=== PATIENT | male | born 1955 | race Caucasian/White ===

== ENCOUNTER 2018-06-17 13:34 | Emergency (ER) | payer BC ==
[2018-06-17] MEDS ORDERED: HYDROcodone/APAP 5-325MG 1 EACH TAB PO STA (14:41)
--- NOTE | 2018-06-17 14:45 | ED ---
Fall HPI - General Chief Complaint: Fall Stated Complaint: Fell,Arm injury Time Seen by Provider: 06/17/18 14:30 Source: patient Mode of arrival: wheelchair - History of Present Illness Initial Comments: This is a 62-year-old male with a benign history who is right handed who states she slipped on the ice this prior to arrival here. He complains of right elbow and shoulder pain. He does not complaining of any head neck or back pain no other extremity injury he points to the right elbow shoulder area area pain. MD Complaint: fall - Related Data Home Medications Medication Instructions Recorded Confirmed Naproxen Sodium [Aleve] 220 mg PO DAILY PRN 06/17/18 06/17/18 Allergies Allergy/AdvReac Type Severity Reaction Status Date / Time No Known Allergies Allergy Verified 06/17/18 13:48 Review of Systems ROS Statement: Those systems with pertinent positive or pertinent negative responses have been documented in the HPI. ROS Other: All systems not noted in ROS Statement are negative. Past Medical History Past Medical History: No Reported History History of Any Multi-Drug Resistant Organisms: None Reported Past Surgical History: Hernia Repair Past Psychological History: No Psychological Hx Reported Smoking Status: Current every day smoker Past Alcohol Use History: None Reported Past Drug Use History: None Reported General Exam - General Exam Comments Initial Comments: This is a well-developed well-nourished awake alert oriented times 3 male Limitations: no limitations General appearance: alert, anxious, in distress Head exam: Present: atraumatic, normocephalic, normal inspection Eye exam: Present: normal appearance, PERRL, EOMI. Absent: scleral icterus, conjunctival injection, periorbital swelling ENT exam: Present: normal exam, mucous membranes moist Neck exam: Present: normal inspection. Absent: tenderness, meningismus, lymphadenopathy Respiratory exam: Present: normal lung sounds bilaterally. Absent: respiratory distress, wheezes, rales, rhonchi, stridor Cardiovascular Exam: Present: regular rate Extremities exam: Present: tenderness, normal capillary refill, other (Marked tenderness palpation of the right elbow and some tenderness over the proximal right humerus no evidence of any subluxation or deformity at this time. No tennis palpation of the distal right forearm wrist and fingers.). Absent: full ROM Back exam: Present: normal inspection Neurological exam: Present: alert, oriented X3, CN II-XII intact Psychiatric exam: Present: normal affect, anxious Skin exam: Present: warm, dry, intact, normal color. Absent: rash Course Vital Signs 06/17/18 06/17/18 06/17/18 13:35 16:03 16:20 Temperature 97.5 F L Pulse Rate 84 92 96 Respiratory 18 16 14 Rate Blood Pressure 107/68 135/99 143/76 O2 Sat by Pulse 96 95 95 Oximetry 06/17/18 06/17/18 06/17/18 16:22 16:25 16:27 Temperature Pulse Rate 105 H 101 H 107 H Respiratory 18 18 16 Rate Blood Pressure 146/77 146/77 92/67 O2 Sat by Pulse 99 94 L Oximetry 06/17/18 06/17/18 06/17/18 16:29 16:30 16:34 Temperature Pulse Rate 96 97 Respiratory 18 18 Rate Blood Pressure 143/91 92/67 95/73 O2 Sat by Pulse 92 L 97 Oximetry 06/17/18 16:47 Temperature 97.8 F Pulse Rate 93 Respiratory 18 Rate Blood Pressure 115/72 O2 Sat by Pulse 97 Oximetry - Reevaluation(s) Reevaluation #1: 06/17/18 16:53 I did discuss case in the branch who did consult with Dr. Mitchell. The patient needs orthopedic trauma. I did discuss case with Dr. Nix at [facility] is agreed to set the patient transfer. Procedures - Orthopedic Splinting/Casting Injury #1 Side: right Upper Extremity Injury Location: elbow Upper Extremity Immobilizer: sling/shoulder immobilizer, posterior splint, ulnar gutter (Long arm 5 x 30) - Procedural Sedation Procedural Sedation Start Time: 16:25 Procedural Sedation Stop Time: 16:54 Indications: fracture/dislocation reduction ASA Class: II Mallampati Airway Score: 3 Preparation: tie presser applied, pulse oximeter, capnometry used, supplemental O2 applied, reversal agents at bedside, suction/airway equipment at bedside, IV secured Midazolam: IV Midazolam Dose: 2 IV Propofol Dose (mgs): 50 Complications: none Patient Tolerated Procedure: well (Patient did require some re- positioning) Medical Decision Making - Medical Decision Making Post reduction this pleasant application x-ray shows minimal improvement patient neurovascular exam however is good any states he feels much improved at this time. Patient will be transferred to [facility] by EMS. I did fill out transfer papers. - Lab Data Result diagrams: 06/17/18 15:47 06/17/18 15:47 Lab Results 06/17/18 06/17/18 Range/Units 15:47 15:47 WBC 19.2 H (3.8-10.6) k/uL RBC 4.93 (4.30-5.90) m/uL Hgb 15.4 (13.0-17.5) gm/dL Hct 45.6 (39.0-53.0) % MCV 92.6 (80.0-100.0) fL MCH 31.3 (25.0-35.0) pg MCHC 33.8 (31.0-37.0) g/dL RDW 12.8 (11.5-15.5) % Plt Count 225 (150-450) k/uL Neutrophils % 88 % Lymphocytes % 7 % Monocytes % 4 % Eosinophils % 1 % Basophils % 0 % Neutrophils # 16.9 H (1.3-7.7) k/uL Lymphocytes # 1.3 (1.0-4.8) k/uL Monocytes # 0.7 (0-1.0) k/uL Eosinophils # 0.2 (0-0.7) k/uL Basophils # 0.0 (0-0.2) k/uL Sodium 137 (137-145) mmol/L Potassium 4.9 (3.5-5.1) mmol/L Chloride 106 (98-107) mmol/L Carbon Dioxide 23 (22-30) mmol/L Anion Gap 8 mmol/L BUN 14 (9-20) mg/dL Creatinine 0.96 (0.66-1.25) mg/dL Est GFR (CKD-EPI)AfAm >90 (>60 ml/min/1.73 sqM) Est GFR (CKD-EPI)NonAf 86 (>60 ml/min/1.73 sqM) Glucose 354 H (74-99) mg/dL Calcium 9.1 (8.4-10.2) mg/dL Magnesium 1.8 (1.6-2.3) mg/dL Total Bilirubin 0.5 (0.2-1.3) mg/dL AST 27 (17-59) U/L ALT 35 (21-72) U/L Alkaline Phosphatase 102 (38-126) U/L Total Protein 6.6 (6.3-8.2) g/dL Albumin 3.7 (3.5-5.0) g/dL - Radiology Data Radiology results: report reviewed (I did review the imaging and report the patient does demonstrate a comminuted fracture proximal ulna and radius.), image reviewed Disposition Clinical Impression: Fall, Right forearm fracture Disposition: OTHER INSTITUTION NOT DEFINED Condition: Stable Is patient prescribed a controlled substance at d/c from ED?: No Referrals: Janae Simmons MD [Primary Care Provider] - 1-2 days - Out of Hospital Transfer - Req. Specs Out of Hospital Transfer - Requested Specifics: Other Emergency Center
--- NOTE | 2018-06-17 15:22 | XR ---
Right almost single view. History pain. Comparison none. FINDINGS: A single lateral view was obtained at shows comminuted fracture of the proximal ulna. There is probab ly impacted comminuted fracture of the radial head. Detail is limited. I see no obvious dislocation. IMPRESSION: Fractures of the proximal radius and ulna. No dislocation seen.
--- NOTE | 2018-06-17 15:23 | XR ---
Right humerus 2 views. History fall. Pain. Comparison none. FINDINGS: There are fractures of the proximal radius and ulna. I see no definite dislocation at the elbow joint . The shoulder joint appears anatomic. No humerus fracture seen. IMPRESSION: Fractures of proximal radius and ulna. No humerus fracture seen.
--- NOTE | 2018-06-17 15:25 | XR ---
Right forearm 2 views. History fall. Pain. Comparison none. FINDINGS: Frontal and lateral views were obtained. There is lateral dislocation of the radial head. There is la rge tip fracture of the radial head that measures 15 mm on the medial aspect. There is comminuted fra cture of the proximal ulna. The carpal bones appear intact. Wrist joint is appears intact. IMPRESSION: There is lateral dislocation of the radial head with fracture. There is comminuted proximal ulnar fra cture with separation of fragments up to 2 cm.
[2018-06-17] MEDS ORDERED: PROPOFOL 10 MG/ML 20 ML VIAL IV STA (15:53)
[2018-06-17] MEDS ORDERED: HYDROmorphone 1 MG/ML 1 ML SYRINGE IVP STA (15:54)
[2018-06-17] MEDS ORDERED: MIDAZOLAM 1 MG/ML 5 ML VIAL IV STA (15:54)
[2018-06-17 16:27] LABS: Basophils % (A) 0 %; Eosinophils # (A) 0.2 k/uL (0-0.7); Eosinophils % (A) 1 %; HCT 45.6 % (39.0-53.0); HGB 15.4 gm/dL (13.0-17.5); Lymphocytes # (A) 1.3 k/uL (1.0-4.8); Lymphocytes % (A) 7 %; MCH 31.3 pg (25.0-35.0); MCHC 33.8 g/dL (31.0-37.0); MCV 92.6 fL (80.0-100.0); Mean Platelet Volume 7.7; Monocytes # (A) 0.7 k/uL (0-1.0); Monocytes % (A) 4 %; Neutrophils # (A) 16.9 k/uL (1.3-7.7); Neutrophils % (A) 88 %; Platelet Count 225 k/uL (150-450); RBC 4.93 m/uL (4.30-5.90); RDW 12.8 % (11.5-15.5); WBC 19.2 k/uL (3.8-10.6)
[2018-06-17 16:37] LABS: ALT 35 U/L (21-72); AST 27 U/L (17-59); Albumin 3.7 g/dL (3.5-5.0); Alkaline Phosphatase 102 U/L (38-126); Anion Gap 8 mmol/L; Blood Urea Nitrogen 14 mg/dL (9-20); Calcium 9.1 mg/dL (8.4-10.2); Carbon Dioxide 23 mmol/L (22-30); Chloride 106 mmol/L (98-107); Glucose 354 mg/dL (74-99); Magnesium 1.8 mg/dL (1.6-2.3); Potassium 4.9 mmol/L (3.5-5.1); Sodium 137 mmol/L (137-145); Total Bilirubin 0.5 mg/dL (0.2-1.3); Total Protein 6.6 g/dL (6.3-8.2)
[2018-06-17 16:48] VITALS: BP 115/72
--- NOTE | 2018-06-17 17:07 | XR ---
Right elbow 2 views. History postreduction. Pain. Comparison today. FINDINGS: 2 views are obtained through the cast that show comminuted proximal ulna fracture with separation of the fragments up to 2 cm. There appears to be reduction of the dislocated radial head. There is a lar ge radial head chip fracture. IMPRESSION: Reduction of the dislocated radial head. No significant change in position of the ulna fractures.
[2018-06-17 17:25] VITALS: PULSE 92; RESP 15
[2018-06-17 17:42] VITALS: TEMP 98
== END 2018-06-17 17:41 | disposition other institution (70) ==
LOC: EC 13:34
DX: S52.121A Displaced fracture of head of right radius, initial encounter for closed fracture (principal); S52.001A Unspecified fracture of upper end of right ulna, initial encounter for closed fracture; F17.200 Nicotine dependence, unspecified, uncomplicated; W00.0XXA Fall on same level due to ice and snow, initial encounter; Y92.89 Other specified places as the place of occurrence of the external cause
CPT/HCPCS: 36415; 80053; 83735; 85025; 73060; 73070; 73090; 99284; 24655; 99152; 99153; 96374; J2250; J1170; J2704

== ENCOUNTER → 2018-10-25 | Outpatient (CLI) | payer BC ==
--- NOTE | 2018-10-26 11:59 | MR ---
EXAMINATION TYPE: MR lumbar spine wo con DATE OF EXAM: 10/25/2018 COMPARISON: None HISTORY: Chronic LBP, numbness in legs, recently getting worse TECHNIQUE: Multiplanar, multisequence images of the lumbar spine were acquired. L1-L2: Posterior broad-based disc bulge causes mild anterior mass effect on the thecal sac. There is no significant foraminal encroachment, only mild central stenosis. Facet arthropathy change is presen t. L2-L3: No significant central stenosis. No foraminal encroachment on the right, circumferential exten ryan endplate disc complex encroaches somewhat on the left neural foramen. There is a posterior broad -based disc bulge. L3-L4: Posterior broad-based disc bulge causes mild anterior mass effect on the thecal sac, only mild central stenosis. Circumferential extension endplate disc complex encroaches on the neural foramina. There is mild central stenosis. L4-L5: Facet arthropathy changes present encroaching on the lateral recess on the right. Circumferent ial posterior disc bulge causes minimal anterior mass effect on the thecal sac. There is mild to mode rate central stenosis. Hypertrophic change of the ligamentum flavum causes some posterior lateral mas s effect on the thecal sac greater from the left. Circumferential extension of endplate disc complex encroaches somewhat on the left neural foramen additionally. L5-S1: Circumferential extension of endplate disc complex encroaches somewhat on the neural foramen o n the right which may be contributed by the spinal curvature. There is some facet arthropathy. No sig nificant central canal stenosis. Lumbar segments are intact. No paraspinal masses are identified. Conus medullaris has a normal appe arance. There is a spinal curvature present. Increased signal within the disc space at L5-S1 may be r elated to disc calcification. There is loss of disc height signal at L4-5 and L1-2 greater than L3-4 and L2-3. Associated vacuum phenomenon present L4-5. There is multilevel spondylosis with endplate di scogenic marrow signal change. IMPRESSION: Degenerative disc disease, facet arthropathy, multilevel foraminal encroachment as described. There i s a spinal curvature present.
== END | disposition home or self-care (01) ==
LOC: RADMRIMAIN 14:31
PROVIDERS: ATTEND Family Medicine
DX: M51.16 Intervertebral disc disorders with radiculopathy, lumbar region (principal); M46.96 Unspecified inflammatory spondylopathy, lumbar region; M43.8X6 Other specified deforming dorsopathies, lumbar region
CPT/HCPCS: 72148

== ENCOUNTER → 2018-12-25 | Outpatient (CLI) | payer BC ==
[2018-12-25 11:17] LABS: HGB 15.1 gm/dL (13.0-17.5); MCH 30.4 pg (25.0-35.0); Mean Platelet Volume 6.9; Platelet Count 311 k/uL (150-450); RBC 4.95 m/uL (4.30-5.90); RDW 13.8 % (11.5-15.5); WBC 12.6 k/uL (3.8-10.6)
[2018-12-25 11:19] LABS: Potassium 4.4 mmol/L (3.5-5.1)
== END | disposition home or self-care (01) ==
LOC: LABPAT 10:14
PROVIDERS: ATTEND Internal Medicine Interventional Cardiology
DX: Z01.812 Encounter for preprocedural laboratory examination (principal); I70.213 Atherosclerosis of native arteries of extremities with intermittent claudication, bilateral legs
CPT/HCPCS: 36415; 80051; 82565; 84520; 85027

== ENCOUNTER → 2019-01-12 | Day surgery (SDC) | payer BC ==
[2019-01-09 11:52] VITALS: BMI 32.5
[~2019-01-12] MED LIST: HEPARIN SODIUM 1,000 UN/ML (10ML VL) IV ONE; HYDROmorphone 1 MG/ML 1 ML SYRINGE IVP ONE; IOPAMIDOL-300 100ML BTL INJ ONE; MIDAZOLAM (PF) 2 MG/2 ML VIAL IV ONE; SODIUM CHLORIDE 0.9% 1,000 ML IV SCH; SODIUM CHLORIDE 0.9% 1,000 ML in EMPTY BAG 1 BAG IV ONE
[2019-01-12 08:09] VITALS: RESP 18; TEMP 97.8
[2019-01-12 08:13] LABS: Glucose,Whole Blood 101 mg/dL (75-99)
[2019-01-12] MEDS: LIDOCAINE 1% INJ 10MG/ML (20 ML MDV) SQ ONE ×2 (09:12→09:20)
[2019-01-12] MEDS: VERAPAMIL SYRINGE (5 MG/10 ML) INTRAARTER ONE ×2 (09:21→09:31)
--- NOTE | 2019-01-12 10:29 | AN ---
ANGIOGRAPHY REPORT ABDOMINAL AORTOGRAM AND BILATERAL LOWER EXTREMITIES RUNOFF: DATE OF SERVICE: 01/12/2019 PERFORMING PHYSICIAN: Olvin Coyle MD. PROCEDURE PERFORMED: 1. An abdominal aortogram. 2. Bilateral lower extremities runoff. INDICATION: This is a very pleasant 63-year-old gentleman with history of hypertension, dyslipidemia, and diabetes, who was experiencing bilateral lower extremities discomfort. The discomfort initially was thought to be related to neurology etiology and he was receiving injection without any improvement. Subsequently, he was seen in the office where he was found to have absence of any femoral pulses bilaterally. Severe PAD was suspected and because of that, the patient was brought today to undergo an aortogram with runoff. APPROACH: Right radial artery. COMPLICATION: None. LEVEL OF SEDATION: Moderate with sedation length of 22 minutes. PROCEDURE DESCRIPTION: After obtaining an informed consent, the patient was brought to the cardiac brick and blocker aid labor. The right radial artery was cannulated using micropuncture technique. Then I placed a 5- Prydeinig sheath. I did give the patient 2 mg of verapamil IA and 10,000 units of heparin IV. Subsequently, I did perform an aortogram with runoff using 5-Prydeinig pigtail catheter which was initially placed at the level of the renal arteries then it was pulled into above the bifurcation of the aorta to right and left common iliac arteries. The procedure was completed without any complication. SELECTIVE PERIPHERAL ANGIOGRAM: 1. The aorta is occluded distally just above the bifurcation. 2. Common iliac arteries, both are 100% occluded. 3. Internal iliac arteries are patent. 4. External iliac arteries are patent. 5. Common femoral arteries are patent. 6. Profunda are angiographically normal. 7. SFA are angiographically normal. 8. Popliteals are angiographically normal. 9. Below the knee there are 3 vessel runoff below the knee bilaterally. CONCLUSION: 1. Severe aortoiliac disease with occluded distal aorta along with occlusion of both common iliac arteries on short segments. POSTPROCEDURE MANAGEMENT: 1. Maximize medical treatment. 2. Discharge home. 3. Revascularization and I will discuss with the patient the option between surgical revascularization versus percutaneous revascularization. MMODL / IJN: [id number] /
[2019-01-12 13:58] VITALS: PULSE 71
[2019-01-12 14:52] VITALS: BP 116/73
--- NOTE | 2019-01-12 15:23 | IR ---
Fluoroscopy HISTORY: Pain in both legs 2.4 minutes fluoroscopy time supplied to the referring clinician. 144 intraoperative C-arm images do cument the procedure. See dictated report from cardiology.
== END ==
LOC: CATHCVL 07:41
PROVIDERS: ATTEND Internal Medicine Interventional Cardiology
DX: I74.09 Other arterial embolism and thrombosis of abdominal aorta (principal); F17.200 Nicotine dependence, unspecified, uncomplicated; E78.5 Hyperlipidemia, unspecified; E11.9 Type 2 diabetes mellitus without complications; I45.10 Unspecified right bundle-branch block; Z79.84 Long term (current) use of oral hypoglycemic drugs; Z79.82 Long term (current) use of aspirin; Z79.899 Other long term (current) drug therapy
CPT/HCPCS: 36200; 75625; 75716; C1769 ×5; C1894; J2001; J1644; J1170; Q9967; J2250

== ENCOUNTER → 2019-05-25 | Day surgery (SDC) | payer BC ==
[2019-05-23 08:34] VITALS: BMI 32.5
[~2019-05-25] MED LIST changes: -HEPARIN SODIUM 1,000 UN/ML (10ML VL) IV ONE; -HYDROmorphone 1 MG/ML 1 ML SYRINGE IVP ONE; -IOPAMIDOL-300 100ML BTL INJ ONE; +LACTATED RINGERS 1,000 ML IV SCH; +LIDOCAINE 1% (10MG/ML) FOR IV START INTRADERMA PRN; -MIDAZOLAM (PF) 2 MG/2 ML VIAL IV ONE; +PROPOFOL 10 MG/ML 20 ML VIAL IV ONE; -SODIUM CHLORIDE 0.9% 1,000 ML IV SCH; -SODIUM CHLORIDE 0.9% 1,000 ML in EMPTY BAG 1 BAG IV ONE
[2019-05-25 07:20] VITALS: RESP 16; TEMP 97.9
[2019-05-25 07:20] LABS: Glucose,Whole Blood 101 mg/dL (75-99)
--- NOTE | 2019-05-25 08:26 | P.PCN ---
Date of Procedure: 05/25/19 Procedure(s) Performed: BRIEF HISTORY: Patient is a 63-year-old pleasant white male scheduled for an elective colonoscopy as a part of value should prior history of colon polyps. Last colonoscopy was 5 years ago. PROCEDURE PERFORMED: Colonoscopy. PREOPERATIVE DIAGNOSIS: history of colon polyps. IV sedation per Anesthesia. PROCEDURE: After informed consent was obtained, the patient, was brought into the endoscopy unit. IV sedation was administered by Anesthesia under continuous monitoring. Digital rectal examination was normal. Initially the Olympus CF-160 flexible video colonoscope was then inserted in the rectum, gradually advanced into the cecum without any difficulty. Careful examination was performed as the scope was gradually being withdrawn. Ileocecal valve and the appendiceal orifice were visualized and appeared normal. Prep was poor and several areas of the colon and thorough irrigation was performed. Mucosa of the cecum, ascending colon, transverse colon, descending colon, sigmoid colon, and rectum appeared normal. Retroflexion was performed in the rectum and no lesions were seen.scattered sigmoid diverticulosis seen. The patient tolerated the procedure well. IMPRESSION: Normal-appearing colon from rectum to cecum no evidence of colorectal neoplasia. scattered sigmoidal diverticulosis RECOMMENDATIONS: Findings of this examination were discussed with the patient as well as a family. He was advised to have a repeat surveillance colonoscopy in 5 years from now because of the prior history of colon polyps.
[2019-05-25 08:38] VITALS: BP 110/75; PULSE 98
== END ==
LOC: ORWHC2ENDO 06:40
PROVIDERS: ATTEND Internal Medicine Gastroenterology
DX: Z12.11 Encounter for screening for malignant neoplasm of colon (principal); K57.30 Diverticulosis of large intestine without perforation or abscess without bleeding; Z86.010 Personal history of colon polyps; I10 Essential (primary) hypertension; E78.5 Hyperlipidemia, unspecified; E11.9 Type 2 diabetes mellitus without complications; Z79.82 Long term (current) use of aspirin; Z79.84 Long term (current) use of oral hypoglycemic drugs; Z79.899 Other long term (current) drug therapy; Z98.890 Other specified postprocedural states
CPT/HCPCS: J2704; G0105; 45378

== ENCOUNTER → 2020-08-15 | Outpatient (CLI) | payer BC ==
[2020-08-15 10:54] LABS: Potassium 5.1 mmol/L (3.5-5.1)
[2020-08-15 10:57] LABS: HCT 45.7 % (39.0-53.0); HGB 15.6 gm/dL (13.0-17.5); MCH 31.9 pg (25.0-35.0); MCHC 34.1 g/dL (31.0-37.0); MCV 93.5 fL (80.0-100.0); Mean Platelet Volume 7.7; Platelet Count 276 k/uL (150-450); RBC 4.89 m/uL (4.30-5.90); RDW 12.6 % (11.5-15.5)
== END | disposition home or self-care (01) ==
LOC: LABPAT 10:03
PROVIDERS: ATTEND Internal Medicine Interventional Cardiology
DX: Z01.812 Encounter for preprocedural laboratory examination (principal); I70.213 Atherosclerosis of native arteries of extremities with intermittent claudication, bilateral legs
CPT/HCPCS: 36415; 80051; 82565; 84520; 85027

== ENCOUNTER 2020-08-20 08:34 | Day surgery (SDC) | payer BC ==
[2020-08-14 14:58] VITALS: BMI 36.9
[~2020-08-20 08:34] MED LIST changes: +ALPRAZolam 0.25 MG TAB PO PRN; +ASPIRIN 325 MG TAB PO PRN; -LACTATED RINGERS 1,000 ML IV SCH; -LIDOCAINE 1% (10MG/ML) FOR IV START INTRADERMA PRN; -PROPOFOL 10 MG/ML 20 ML VIAL IV ONE; +SODIUM CHLORIDE 0.9% 1,000 ML in EMPTY BAG 1 BAG IV ONE
[2020-08-20] MEDS ORDERED: SODIUM CHLORIDE 0.9% 1,000 ML IV ONE (08:41)
[2020-08-20 08:54] LABS: Glucose,Whole Blood 142 mg/dL (75-99)
[2020-08-20 09:01] LABS: Basophils # (A) 0.1 k/uL (0-0.2); Basophils % (A) 1 %; Eosinophils # (A) 0.3 k/uL (0-0.7); Eosinophils % (A) 3 %; HCT 46.1 % (39.0-53.0); HGB 15.8 gm/dL (13.0-17.5); Lymphocytes # (A) 2.9 k/uL (1.0-4.8); Lymphocytes % (A) 27 %; MCH 31.7 pg (25.0-35.0); MCHC 34.2 g/dL (31.0-37.0); MCV 92.6 fL (80.0-100.0); Mean Platelet Volume 7.3; Monocytes # (A) 0.7 k/uL (0-1.0); Monocytes % (A) 7 %; Neutrophils # (A) 6.8 k/uL (1.3-7.7); Neutrophils % (A) 62 %; Platelet Count 307 k/uL (150-450); RBC 4.98 m/uL (4.30-5.90); RDW 12.7 % (11.5-15.5)
[2020-08-20 09:13] VITALS: RESP 16; TEMP 97.8
[2020-08-20] MEDS ORDERED: LIDOCAINE 1% INJ 10MG/ML (20 ML MDV) SQ ONE (10:12)
[2020-08-20] MEDS ORDERED: VERAPAMIL SYRINGE (5 MG/10 ML) INTRAARTER ONE (10:14)
[2020-08-20] MEDS ORDERED: IOPAMIDOL-250 100ML BTL INTRAARTER ONE (10:26)
[2020-08-20] MEDS ORDERED: SODIUM CHLORIDE 0.9% 1,000 ML IV SCH (10:45)
[2020-08-20 16:00] VITALS: BP 141/77; PULSE 77
--- NOTE | 2020-08-20 21:24 | AN ---
ANGIOGRAPHY REPORT ABDOMINAL AORTOGRAM AND BILATERAL LOWER EXTREMITIES RUNOFF: DATE OF SERVICE: August 20, 2020 PERFORMING PHYSICIAN: Olvin Coyle MD. PROCEDURE PERFORMED: 1. Abdominal aortogram. 2. Bilateral lower extremities runoff. INDICATION: Bilateral lower extremities intermittent claudication. COMPLICATION: None. LEVEL OF SEDATION: Moderate with sedation length of 15 minutes. PROCEDURE DESCRIPTION: After obtaining informed consent, the patient was brought to the cardiac blood bank laboratory technician. The right radial artery was cannulated using micropuncture technique and a micropuncture wire passed easily. Then I placed a 5-[place]izen [place] sheath in the right radial artery. At that point, I gave the patient 2 mg of verapamil IA and 10,000 units of heparin IV. I did, after that, an abdominal aortogram and bilateral lower extremities runoff using 5-[place]izen [place] pigtail catheter which was initially placed at the level of the renal arteries. Then it was advanced into above the bifurcation of the aorta to right and left common iliac arteries. The procedure was completed without any complication. SELECTIVE PERIPHERAL ANGIOGRAM: 1. The aorta: The infrarenal aorta is occluded just above the bifurcation into right and left common iliac arteries. 2. 3. The common iliac arteries: Both the right and left common iliac arteries are occluded. 4. External iliac arteries: Both external iliac arteries are patent. 5. Common femoral arteries: Both common femoral arteries are patent. 6. Profunda: Both profunda are patent. 7. SFA: Both SFA are patent. 8. Popliteals: Both popliteals are angiographically normal. 9. Below the knee: There are 3 vessels runoff below the knee bilaterally. CONCLUSION: Occluded infrarenal aorta with occlusion extent to the right and left common iliac arteries. POSTPROCEDURE MANAGEMENT: I will discuss with the patient the option which include aortobifem, which is preferable given his age and for patency which has a higher patency rate than stenting versus percutaneous peripheral intervention. The patient is going to be discharged home later on today. MMODL / IJN: [id number] /
--- NOTE | 2020-08-21 08:46 | IR ---
Fluoroscopy HISTORY: Pain in leg, peripheral vascular occlusive disease 1.4 minutes fluoroscopy time supplied to the referring clinician. 123 intraoperative C-arm images do cument the procedure. See dictated report from cardiology.
--- NOTE | 2020-08-23 06:21 | CDI ---
Outpatient Documentation Clarification Form Date: 08/23/20 CDS/Heavy Threader Name: Pricila Morris Phone: If any question, call Jany Herndon Yard Loader Operator at Patient Name: Vini Pike Admit Date: 08/20/20 Discharge Date: 08/20/20 ATTENTION: The [facility] Coding Staff appreciate our assistance in clarifying documentation. Please respond to the clarification below the line at the bottom and electronically sign. The [facility] Coding Staff will review the response and follow-up if needed. Please Note: Queries are made part of the Legal Health Record. If you have any question, please contact the Coding Manger. Pedro. Dr. Coyle, Please provide clarification as to the cause of the occlusive PAD. PAD/PVD is considered unspecified. Greatest specificity is requires for medical necessity support. Is underlying cause of the Occlusive PAD on of the following: Arteriosclerotic Disease of the arteries Arteritis Necrotic Due to embolism/thrombosis Other - please specify below Thank you for your kind consideration, MTDD
== END 2020-08-20 15:28 | disposition home or self-care (01) ==
LOC: CATHCVL 08:34
PROVIDERS: ATTEND Internal Medicine Interventional Cardiology
DX: I70.213 Atherosclerosis of native arteries of extremities with intermittent claudication, bilateral legs (principal); I70.0 Atherosclerosis of aorta; E11.51 Type 2 diabetes mellitus with diabetic peripheral angiopathy without gangrene; I10 Essential (primary) hypertension; E78.5 Hyperlipidemia, unspecified; F17.200 Nicotine dependence, unspecified, uncomplicated; Z79.84 Long term (current) use of oral hypoglycemic drugs; Z79.82 Long term (current) use of aspirin; Z79.899 Other long term (current) drug therapy; Z20.822 Contact with and (suspected) exposure to COVID-19
CPT/HCPCS: 36200; 75625; 75716; 85025; 87635; C1894; C1769 ×3; J2001; J1644; Q9966

== ENCOUNTER 2020-10-14 05:59 | Observation (INO) | payer BC ==
[2020-10-10 11:06] VITALS: BMI 36.9
[2020-10-14] MEDS ORDERED: HEPARIN SODIUM,PORCINE 10,000 UNIT in SODIUM CHLORIDE 0.9% 1,000 ML IRRIGATION PRN (06:07)
[2020-10-14] MEDS ORDERED: HEPARIN SODIUM,PORCINE 2,500 UNIT in SODIUM CHLORIDE 0.9% 250 ML IRRIGATION PRN (06:07)
[2020-10-14] MEDS ORDERED: ALPRAZolam 0.25 MG TAB PO PRN (06:07)
[2020-10-14] MEDS ORDERED: NITROGLYCERIN SL TABS 0.4 MG TAB SUBLINGUAL PRN (06:07)
[2020-10-14] MEDS ORDERED: ASPIRIN 325 MG TAB PO STA (06:07)
[2020-10-14] MEDS ORDERED: ALPRAZolam 0.5 MG TAB PO PRN (06:07)
[2020-10-14] MEDS ORDERED: SODIUM CHLORIDE 0.9% 1,000 ML in EMPTY BAG 1 BAG IV ONE (06:07)
[2020-10-14] MEDS ORDERED: ATORVASTATIN 80 MG TAB PO STA (06:07)
[2020-10-14] MEDS ORDERED: SODIUM CHLORIDE 0.9% 1,000 ML IV ONE (06:09)
[2020-10-14 06:34] LABS: Glucose,Whole Blood 136 mg/dL (75-99)
[2020-10-14 06:42] LABS: Basophils # (A) 0.1 k/uL (0-0.2); Basophils % (A) 1 %; Eosinophils # (A) 0.4 k/uL (0-0.7); Eosinophils % (A) 4 %; HCT 45.2 % (39.0-53.0); HGB 15.3 gm/dL (13.0-17.5); Lymphocytes # (A) 3.4 k/uL (1.0-4.8); Lymphocytes % (A) 30 %; MCH 31.4 pg (25.0-35.0); MCHC 33.9 g/dL (31.0-37.0); MCV 92.5 fL (80.0-100.0); Mean Platelet Volume 7.2; Monocytes # (A) 0.7 k/uL (0-1.0); Monocytes % (A) 6 %; Neutrophils # (A) 6.6 k/uL (1.3-7.7); Neutrophils % (A) 58 %; Platelet Count 299 k/uL (150-450); RBC 4.89 m/uL (4.30-5.90); RDW 12.8 % (11.5-15.5); WBC 11.4 k/uL (3.8-10.6)
[2020-10-14 06:51] LABS: Potassium 4.5 mmol/L (3.5-5.1)
[2020-10-14] MEDS: fentaNYL (PF) 50 MCG/ML 2 ML AMP IVP ONE ×3 (07:35→09:09)
[2020-10-14] MEDS: MIDAZOLAM 2 MG/2 ML VIAL IVP ONE ×4 (07:35→09:19)
[2020-10-14] MEDS ORDERED: LIDOCAINE 1% INJ 10MG/ML (20 ML MDV) SQ ONE (07:38)
[2020-10-14] MEDS: HEPARIN SODIUM 1,000 UN/ML (10ML VL) IV ONE ×2 (08:02→09:05)
[2020-10-14] MEDS ORDERED: VERAPAMIL SYRINGE (5 MG/10 ML) INTRAARTER ONE (08:05)
[2020-10-14] MEDS ORDERED: HYDROmorphone 1 MG/ML 1 ML SYRINGE IVP ONE (08:12)
[2020-10-14] MEDS ORDERED: ONDANSETRON 4 MG/2 ML VIAL IVP ONE (09:59)
[2020-10-14] MEDS ORDERED: fentaNYL (PF) 50 MCG/ML 2 ML AMP IVP ONE (10:11)
[2020-10-14] MEDS ORDERED: IOPAMIDOL-250 100ML BTL INTRAARTER ONE ×2 (10:28→10:30)
[2020-10-14] MEDS ORDERED: CLOPIDOGREL 75 MG TAB PO ONE (10:28)
[2020-10-14] MEDS ORDERED: SODIUM CHLORIDE 0.9% 1,000 ML in EMPTY BAG 1 BAG IV SCH (10:45)
--- NOTE | 2020-10-14 11:10 | P.OP ---
Date of Procedure: 10/14/20 Preoperative Diagnosis: Disabiling claudication and rest pain Hoke Classification 4 Aorto-iliac occlusion Postoperative Diagnosis: Same Procedure(s) Performed: 1. Endovascular Aortic repair with AFX2 device 2. Ultrasound guided bilateral femoral artery access, and right radial artery access 3. Aortic and bilateral iliac artery occlusion crossing with balloon angioplasty of bilateral iliac arteries. 4. Percutaneous aortic, bilateral common iliac and right external iliac artery balloon angioplasty 5. Percutaneous right common and external iliac artery stenting. 6. Percutaneous closure of bilateral femoral arteries. 7. Aortogram Implants: AFX 2 main body 22/60mm graft 8x59mm Omnilink stent Anesthesia: local, other (conscious sedation x 2 hours 48mins) Surgeon: Ashish Meneses (Co-surgeon- Olvin Coyle) Estimated Blood Loss (ml): 50 Pathology: none sent Condition: stable Disposition: PACU Indications for Procedure: 65-year-old gentleman with history of bilateral lower extremity claudication and rest pain with previous ABIs demonstrating less than 0.5 bilaterally presented for an aortogram with runoff with Dr. Coyle and demonstrated aortic occlusion at the distal aspect of the aorta involving bilateral common iliac arteries. He presents today for endovascular repair and possible aortic biiliac graft. Description of Procedure: After written informed consent was obtained the patient all risks benefits competitions were described patient is brought to the Human Resources Trainer and laid in a supine position. The area of the groins and right wrist were prepped and draped in usual sterile fashion. Procedure was performed under conscious sedation and local and patient was monitored with continuous EKG monitoring and pulse ox. Utilizing ultrasound bilateral common femoral arteries were visualized and shown to be patent with minimal calcification. Multipurpose needle was then utilized to access the arteries. 5-Haitian sheaths were then placed utilizing Seldinger technique. Attempt at crossing the aortoiliac lesion was then performed through these 5-Haitian sheath with an 035 Glidewire and crossing catheters with little success. At that time the right radial artery was accessed by Dr. Coyle and 035 Glidewire was then placed followed by a long sheath into the abdominal aorta. An aortogram was then obtained demonstrating occlusion of the distal aorta and bilateral common iliac arteries extending down to the right internal iliac artery takeoff. Utilizing the crossing catheter and a stiff wire the right aortoiliac occlusion was crossed. A snare was then utilized to grasp the wire from the right common femoral sheath and the wire was pulled externally. Another crossing catheter was then placed up the right femoral sheath into the aorta and the wire was removed and replaced by another guidewire. Attention was then placed to the left iliac occlusion. From the antegrade radial sheath the aortic iliac occlusion was crossed on the left. Once again this wire was then snared after verification of intraluminal access was performed. The wire was then pulled externally and exchanged over another crossing catheter up the left femoral sheath. Attention was then placed to placing the aortoiliac graft. Percutaneous balloon angioplasty of bilateral iliac arteries across the occlusion with a 7 x 40 and 7 x 60 mm balloon was performed. A stiff Lunderquist wire was then placed up the right femoral sheath and the sheath was removed. Attempt at placing Perclose was performed with out success over the wire and therefore a 17-Haitian sheath was placed over the right guidewire above the aortic bifurcation. The 5-Haitian sheath on the left was also removed and replaced with a 7-Haitian sheath. Once across the lesion a 22 x 60 mm AFX to bifurcated device was placed over the wire and the contralateral wire was snared from the contralateral side. Once the wire was snared it was brought externally and the AFX to bifurcated device was transferred into the AFX introducer sheath and advanced under fluoroscopy until the distal limbs were above the bifurcated aspect of the aortic iliac segment. This was pulled down to the bifurcation. Once in appropriate position the main body was deployed by pulling the cord handle. Once deployed the contralateral limb was also deployed by removing the yellow limb cover. A pigtail catheter was then guided over the guidewire and the wire lock was released. The pigtail catheter was then placed above the aorta iliac graft. Guidewire was then placed into the pigtail catheter and the pigtail catheter was removed bilateral iliac balloon angioplasties in a kissing fashion was then performed with 8 x 40 and 8 x 60 mm balloons. Once completed an angiogram was obtained demonstrating improvement of the aortic biiliac vessels. There was still some distal aspect of the common iliac on the right that was occluded or narrowed. The main delivery system was then removed and it was chosen to place an 8 x 59 iliac extension on the right side. An 8 x 59 mm Omnilink stent was then placed. Once completed final angina gram was obtained demonstrating brisk flow through the aorta and bilateral iliac arteries with no evidence of stenosis. 100% improvement of the lumen. All guidewires and catheters were then removed the guidewire was left in the right and utilizing a latoya technique the 17-Haitian sheath was removed and an 8-Haitian sheath was placed. 2 Perclose closure device was then placed around the 8-Haitian sheath. The sheath was then removed and their deployed in normal fashion for good hemostasis. Patient had palpable femoral pulses at the conclusion of the procedure. He was then sent to PACU for recovery.
[2020-10-14] MEDS ORDERED: ACETAMINOPHEN TAB 325 MG TAB PO PRN (11:30)
--- NOTE | 2020-10-14 11:38 | IR ---
EXAMINATION TYPE: IR stent intravas non coronary DATE OF EXAM: 10/14/2020 COMPARISON: NONE HISTORY: Fluoroscopy time. Fluoroscopy was provided to the referring clinician.
[2020-10-14] MEDS ORDERED: HYDROmorphone 1 MG/ML 1 ML SYRINGE IVP PRN (11:42)
[2020-10-14] MEDS ORDERED: HYDROmorphone 0.5 MG/0.5 ML SYRINGE IVP PRN (11:42)
--- NOTE | 2020-10-14 11:47 | AN ---
ANGIOGRAPHY REPORT DATE OF SERVICE: October 14, 2020. PERFORMING PHYSICIAN: Olvin Coyle MD. PROCEDURE PERFORMED: 1. Endovascular Aortic repair with AFX2 device with good result 2. Ultrasound guided bilateral femoral artery access, and right radial artery access 3. Aortic and bilateral iliac artery occlusion crossing with balloon angioplasty of bilateral iliac arteries. 4. Percutaneous aortic, bilateral common iliac and right external iliac artery balloon angioplasty 5. Percutaneous right common and external iliac artery stenting. 6. Percutaneous closure of bilateral femoral arteries. 7. Aortogram and b/l iliacs angiogram PERFORMING PHYSICIAN: 1. Dr. Olvin Coyle. 2. Dr. Ashish Meneses. INDICATION: Bilateral lower extremities intermittent claudication in this 65-year-old gentleman who underwent recently an angiogram and that revealed occluded infrarenal aorta and also occluded right and left common iliac arteries. COMPLICATION: None. LEVEL OF SEDATION: Moderate with sedation length of 2 hours and 48 minutes. PROCEDURE DESCRIPTION: After obtaining informed consent, the patient was brought to cardiac slab puller. The right and left common iliac arteries were cannulated using micropuncture technique, under ultrasound guidance, the micropuncture wire passed easily. Then I placed a two 5- [place] 23 cm Brite tip sheath at the right and left common femoral arteries. Bilateral iliac artery angiogram was performed via the sheath. Anticoagulation was achieved using heparin with continuous ACT monitoring throughout the procedure. 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 Crossing the MANUFACTURING EXECUTIVE was successful in antegrade technique from the sheath in the right radial artery. After that, balloon angioplasty was performed using 4 mm balloon. Please refer to the separate report regarding the deployment of the FX device in the iliacs. We extended the right using 8 x 59 mm balloon expandable stent with good angiographic results by the end. We did an angiogram using digital subtraction and that showed excellent angiographic results with good flow in both femoral arteries. After that, I did hemostasis on the right groin using 2 Perclose device and on the left side using 1 Perclose device. The procedure was completed without any complication. MMODL / IJN: [id number] / [facility]
[2020-10-14 11:52] LABS: Glucose,Whole Blood 198 mg/dL (75-99)
[2020-10-14 16:38] LABS: Glucose,Whole Blood 142 mg/dL (75-99)
[2020-10-14] MEDS: glipiZIDE 10 MG TAB PO SCH (17:19)
[2020-10-14] MEDS ORDERED: ONDANSETRON 4 MG/2 ML VIAL IVP PRN (20:25)
[2020-10-14 20:39] LABS: Glucose,Whole Blood 182 mg/dL (75-99)
[2020-10-14] MEDS: NICOTINE 21MG/24HR PATCH TRANSDERM SCH (20:42)
[2020-10-14] MEDS ORDERED: ATORVASTATIN 10 MG TAB PO SCH (21:00)
[2020-10-15 06:32] LABS: Glucose,Whole Blood 145 mg/dL (75-99)
[2020-10-15] MEDS: glipiZIDE 10 MG TAB PO SCH (06:40)
[2020-10-15 07:41] VITALS: BP 128/68; PULSE 93; RESP 16; TEMP 98.3
[2020-10-15] MEDS: NICOTINE 21MG/24HR PATCH TRANSDERM SCH (07:59)
[2020-10-15 08:39] LABS: Basophils % (A) 0 %; Eosinophils # (A) 0.1 k/uL (0-0.7); Eosinophils % (A) 1 %; HCT 37.7 % (39.0-53.0); HGB 12.7 gm/dL (13.0-17.5); Lymphocytes # (A) 1.9 k/uL (1.0-4.8); Lymphocytes % (A) 12 %; MCH 31.1 pg (25.0-35.0); MCHC 33.6 g/dL (31.0-37.0); MCV 92.4 fL (80.0-100.0); Mean Platelet Volume 7.3; Monocytes # (A) 0.8 k/uL (0-1.0); Monocytes % (A) 5 %; Neutrophils # (A) 12.6 k/uL (1.3-7.7); Neutrophils % (A) 81 %; Platelet Count 233 k/uL (150-450); RBC 4.07 m/uL (4.30-5.90); RDW 12.8 % (11.5-15.5); WBC 15.5 k/uL (3.8-10.6)
[2020-10-15 08:58] LABS: African American GFR (CKD) >90 (>60 ml/min/1.73 sqM); Anion Gap 6 mmol/L; Blood Urea Nitrogen 11 mg/dL (9-20); Calcium 8.7 mg/dL (8.4-10.2); Carbon Dioxide 28 mmol/L (22-30); Chloride 104 mmol/L (98-107); Glucose 142 mg/dL (74-99); Non-African American GFR(CKD) 87 (>60 ml/min/1.73 sqM); Potassium 4.2 mmol/L (3.5-5.1); Sodium 138 mmol/L (137-145)
[2020-10-15] MEDS ORDERED: ASPIRIN 81 MG PO SCH (09:00)
[2020-10-15] MEDS ORDERED: CLOPIDOGREL 75 MG TAB PO SCH (09:00)
--- NOTE | 2020-10-15 11:49 | P.DS ---
Providers Date of admission: 10/14/20 23:45 09/13/2020 Attending physician: Olvin Coyle Primary care physician: [facility] Course: This is a 65-year-old gentleman who underwent yesterday successful percutaneous repair of infrarenal aorta along with bilateral iliac arteries from right and left common femoral arteries as well as from right radial artery. The patient was seen this morning. Both feet are warm. He does have Doppler signal in both feet overall these asymptomatic. He is to be discharged home on dual antiplatelet therapy along with statin. Going to follow-up with the patient in a week. Please note that the right and left groins are soft and nontender. Plan - Discharge Summary Discharge Rx Participant: No New Discharge Prescriptions: New Clopidogrel [Plavix] 75 mg PO DAILY #90 tab Continue glipiZIDE [Glucotrol] 10 mg PO AC-BID Atorvastatin [Lipitor] 10 mg PO HS Aspirin EC [Ecotrin Low Dose] 81 mg PO DAILY Discontinued metFORMIN HCL 1,000 mg PO BID Discharge Medication List Aspirin EC [Ecotrin Low Dose] 81 mg PO DAILY 01/09/19 [History] Atorvastatin [Lipitor] 10 mg PO HS 01/09/19 [History] glipiZIDE [Glucotrol] 10 mg PO AC-BID 01/09/19 [History] Clopidogrel [Plavix] 75 mg PO DAILY #90 tab 10/15/20 [Rx] Follow up Appointment(s)/Referral(s): Olvin Coyle MD [STAFF PHYSICIAN] - 10/24/20 4:45 pm (Tuesday) Patient Instructions/Handouts: *[facility] - After Heart Catheterization - Asphalt Raker Instructions, How to Stop Smoking (DC), Heart Healthy Diet (DC), Cigarette Smoking and Your Health (GEN), After Radial Heart Catheterization (GEN), Peripheral Vascular Stent Placement (DC) Discharge Disposition: HOME SELF-CARE
== END 2020-10-15 11:45 | disposition home or self-care (01) ==
LOC: CATHCVL 05:59 → 3SCARD 10:24 → CATHCVL 23:45
PROVIDERS: ADMIT Internal Medicine Interventional Cardiology; ATTEND Internal Medicine Interventional Cardiology
DX: I73.9 Peripheral vascular disease, unspecified (principal); I74.5 Embolism and thrombosis of iliac artery; E11.9 Type 2 diabetes mellitus without complications; I10 Essential (primary) hypertension; E78.5 Hyperlipidemia, unspecified; F17.210 Nicotine dependence, cigarettes, uncomplicated; Z79.82 Long term (current) use of aspirin; Z79.84 Long term (current) use of oral hypoglycemic drugs; Z79.899 Other long term (current) drug therapy
CPT/HCPCS: 37221; 37223; 80048 ×2; 85025 ×2; 87635; G0378; C1769 ×7; C1894 ×8; C1773; C1733; C1725; C1760; S4990 ×2; J2250; J2405; J2001; J3010; J1644; J1170; Q9966; 37237

== ENCOUNTER 2020-10-15 12:15 | Inpatient (IN) | payer BC ==
[~2020-10-15 12:15] MED LIST changes: -ALPRAZolam 0.25 MG TAB PO PRN; -ASPIRIN 325 MG TAB PO PRN; +LACTATED RINGERS 1,000 ML IV ONE; -SODIUM CHLORIDE 0.9% 1,000 ML in EMPTY BAG 1 BAG IV ONE
--- NOTE | 2020-10-15 13:44 | ED ---
General Adult HPI - General Chief complaint: Extremity Problem,Nontraumatic Stated complaint: post op-numbness in legs & toes Time Seen by Provider: 10/15/20 13:15 Source: patient, family, RN notes reviewed Mode of arrival: wheelchair Limitations: physical limitation - History of Present Illness Initial comments: Patient is a pleasant 65-year-old male presenting to the emergency Department with complaints of bilateral leg paresthesias and weakness. Patient states he did have recent procedure, stenting of infrarenal aorta. Patient was discharges morning. Patient states after the car ride home he had some discomfort. Patient had paresthesias starting in the bilateral groin extending downward. Patient got up out of the car and had difficulty walking or moving. Discomfort was present however mild at that time, discomfort has resolved. Symptoms are improved at this time. - Related Data Home Medications Medication Instructions Recorded Confirmed Aspirin EC [Ecotrin Low Dose] 81 mg PO DAILY 01/09/19 10/14/20 Atorvastatin [Lipitor] 10 mg PO HS 01/09/19 10/14/20 glipiZIDE [Glucotrol] 10 mg PO AC-BID 01/09/19 10/14/20 Previous Rx's Medication Instructions Recorded Clopidogrel [Plavix] 75 mg PO DAILY #90 tab 10/15/20 Allergies Allergy/AdvReac Type Severity Reaction Status Date / Time No Known Allergies Allergy Verified 10/15/20 12:24 Review of Systems ROS Statement: Those systems with pertinent positive or pertinent negative responses have been documented in the HPI. ROS Other: All systems not noted in ROS Statement are negative. Constitutional: Denies: fever Eyes: Denies: eye pain ENT: Denies: ear pain Respiratory: Denies: cough Cardiovascular: Denies: chest pain Endocrine: Denies: fatigue Gastrointestinal: Denies: abdominal pain Genitourinary: Denies: dysuria Musculoskeletal: Denies: back pain Skin: Denies: rash Neurological: Reports: as per HPI, weakness, paresthesias Psychiatric: Denies: depression Past Medical History Past Medical History: Diabetes Mellitus, Hyperlipidemia, Vascular Disorder History of Any Multi-Drug Resistant Organisms: None Reported Past Surgical History: Heart Catheterization, Heart Catheterization With Stent, Hernia Repair, Orthopedic Surgery Additional Past Surgical History / Comment(s): colonoscopy, aortogram,. rt elbow REPLACEMNT Past Anesthesia/Blood Transfusion Reactions: No Reported Reaction Past Psychological History: No Psychological Hx Reported Smoking Status: Current every day smoker Past Alcohol Use History: None Reported Past Drug Use History: None Reported - Past Family History Mother Family Medical History: Cancer General Exam Limitations: physical limitation General appearance: alert, in no apparent distress Head exam: Present: normocephalic Eye exam: Present: normal appearance Neck exam: Present: normal inspection Respiratory exam: Present: normal lung sounds bilaterally Cardiovascular Exam: Present: regular rate, normal rhythm Expanded Peripheral pulses: 1+: Femoral (R) (Confirmed with Doppler), Femoral (L) (Confirmed with Doppler) GI/Abdominal exam: Present: soft. Absent: tenderness Extremities exam: Present: normal inspection, other (Bilateral inguinal area with small punctures and minimal ecchymosis consistent with recent procedure) Neurological exam: Present: alert. Absent: motor sensory deficit Psychiatric exam: Present: normal affect, normal mood Skin exam: Present: normal color, other (Refill 2-3 seconds. No purplish or pallor of the extremities). Absent: cyanosis Course Vital Signs 10/15/20 12:18 Temperature 98.3 F Pulse Rate 103 H Respiratory 20 Rate Blood Pressure 118/78 O2 Sat by Pulse 96 Oximetry - Reevaluation(s) Reevaluation #1: 10/15/20 13:45 Dr. Coyle was notified who is currently in a procedure. 10/15/20 15:07 Call was received from Dr. Coyle who requested starting patient on low dose heparin. Medical Decision Making - Medical Decision Making Case was discussed with Dr. Coyle who does have concern for clotting of the stent and will admit. He will notify Dr. mixon - Lab Data Result diagrams: 10/15/20 14:00 10/15/20 14:00 Lab Results 10/15/20 10/15/20 10/15/20 Range/Units 14:00 14:00 14:00 WBC 12.9 H (3.8-10.6) k/uL RBC 4.14 L (4.30-5.90) m/uL Hgb 12.9 L (13.0-17.5) gm/dL Hct 37.7 L (39.0-53.0) % MCV 90.9 (80.0-100.0) fL MCH 31.1 (25.0-35.0) pg MCHC 34.2 (31.0-37.0) g/dL RDW 12.7 (11.5-15.5) % Plt Count 209 (150-450) k/uL MPV 7.3 Neutrophils % 78 % Lymphocytes % 13 % Monocytes % 7 % Eosinophils % 1 % Basophils % 0 % Neutrophils # 10.1 H (1.3-7.7) k/uL Lymphocytes # 1.6 (1.0-4.8) k/uL Monocytes # 0.9 (0-1.0) k/uL Eosinophils # 0.1 (0-0.7) k/uL Basophils # 0.0 (0-0.2) k/uL PT 10.3 (9.0-12.0) sec INR 1.0 (<1.2) APTT 22.6 (22.0-30.0) sec Sodium 138 (137-145) mmol/L Potassium 4.2 (3.5-5.1) mmol/L Chloride 106 (98-107) mmol/L Carbon Dioxide 27 (22-30) mmol/L Anion Gap 5 mmol/L BUN 10 (9-20) mg/dL Creatinine 0.95 (0.66-1.25) mg/dL Est GFR (CKD-EPI)AfAm >90 (>60 ml/min/1.73 sqM) Est GFR (CKD-EPI)NonAf 85 (>60 ml/min/1.73 sqM) Glucose 105 H (74-99) mg/dL Calcium 8.9 (8.4-10.2) mg/dL Total Bilirubin 0.3 (0.2-1.3) mg/dL AST 23 (17-59) U/L ALT 18 (4-49) U/L Alkaline Phosphatase 62 (38-126) U/L Total Protein 6.3 (6.3-8.2) g/dL Albumin 3.7 (3.5-5.0) g/dL Disposition Clinical Impression: Leg weakness, Paresthesia of both legs Disposition: ADMITTED IP TO THIS HOSP Is patient prescribed a controlled substance at d/c from ED?: No Referrals: Cricket Orta [Primary Care Provider] - 1-2 days Decision Time: 14:07
[2020-10-15] MEDS ORDERED: SODIUM CHLORIDE 0.9% 1,000 ML IV STA (13:49)
[2020-10-15] MEDS ORDERED: HYDROmorphone 1 MG/ML 1 ML SYRINGE IVP PRN (14:07)
[2020-10-15] MEDS ORDERED: HYDROmorphone 0.5 MG/0.5 ML SYRINGE IVP PRN (14:07)
[2020-10-15] MEDS ORDERED: NALOXONE 0.4 MG/ML 1 ML VIAL IV PRN (14:07)
[2020-10-15 14:24] LABS: Basophils % (A) 0 %; Eosinophils # (A) 0.1 k/uL (0-0.7); Eosinophils % (A) 1 %; HCT 37.7 % (39.0-53.0); HGB 12.9 gm/dL (13.0-17.5); Lymphocytes # (A) 1.6 k/uL (1.0-4.8); Lymphocytes % (A) 13 %; MCH 31.1 pg (25.0-35.0); MCHC 34.2 g/dL (31.0-37.0); MCV 90.9 fL (80.0-100.0); Mean Platelet Volume 7.3; Monocytes # (A) 0.9 k/uL (0-1.0); Monocytes % (A) 7 %; Neutrophils # (A) 10.1 k/uL (1.3-7.7); Neutrophils % (A) 78 %; Platelet Count 209 k/uL (150-450); RBC 4.14 m/uL (4.30-5.90); RDW 12.7 % (11.5-15.5); WBC 12.9 k/uL (3.8-10.6)
[2020-10-15 14:25] LABS: ALT 18 U/L (4-49); AST 23 U/L (17-59); African American GFR (CKD) >90 (>60 ml/min/1.73 sqM); Albumin 3.7 g/dL (3.5-5.0); Alkaline Phosphatase 62 U/L (38-126); Anion Gap 5 mmol/L; Blood Urea Nitrogen 10 mg/dL (9-20); Calcium 8.9 mg/dL (8.4-10.2); Carbon Dioxide 27 mmol/L (22-30); Chloride 106 mmol/L (98-107); Glucose 105 mg/dL (74-99); Non-African American GFR(CKD) 85 (>60 ml/min/1.73 sqM); Potassium 4.2 mmol/L (3.5-5.1); Sodium 138 mmol/L (137-145); Total Bilirubin 0.3 mg/dL (0.2-1.3); Total Protein 6.3 g/dL (6.3-8.2)
[2020-10-15 14:31] LABS: Partial Thromboplastin Time 22.6 sec (22.0-30.0); Prothrombin Time 10.3 sec (9.0-12.0)
[2020-10-15] MEDS ORDERED: HEPARIN SODIUM 1,000 UN/ML (10ML VL) IV ONE (15:06)
[2020-10-15] MEDS ORDERED: HEPARIN SODIUM 1,000 UN/ML (10ML VL) IV PRN (15:06)
[2020-10-15] MEDS ORDERED: HEPARIN SOD,PORK IN 0.45% NACL 25,000 UNIT in 0.45% NACL 1 250ML.BAG IV SCH (15:15)
--- NOTE | 2020-10-15 15:58 | CT ---
EXAMINATION TYPE: CT angio abd aorta w/Runoff DATE OF EXAM: 10/15/2020 COMPARISON: Angiogram 10/14/2020 HISTORY: Post op numbness in legs and toes CT DLP: 4535 mGycm, Automated Exposure Control for Dose Reduction was Utilized. CONTRAST: CT scan of the abdomen and pelvis is performed with oral and with IV Contrast, patient injected with 125 mL of Isovue 370. Three-dimensional reconstructions performed on an alternate workstation FINDINGS: The infrarenal abdominal aorta is occluded, eccentric plaque or thrombus is present at the infrarenal location, renal arteries are patent. Stents are present in the infrarenal abdominal aorta as well as the common iliac arteries which do not enhance. There is reconstitution of the left pre school teacher al iliac artery via the internal iliac branches. Stents across the aortic bifurcation, right internal iliac artery origin. The right common femoral artery is reconstituted via the inferior epigastric ar matt, pelvic collaterals, left common femoral arteries also patent. Increased attenuation within the subcutaneous fat likely postprocedural. The left and right superficial femoral and deep femoral arter ies are patent. The left popliteal artery is occluded at the level of the knee joint, right popliteal artery appears occluded just proximal to the knee joint. There are soleal branch is present within t he catheter. No appreciable outflow vasculature patent within the right calf. The left lower extremit y shows proximal anterior tibial artery does show subsegmental enhancement, posterior tibial artery s how some enhancement in the proximal leg and extends into the foot. Anterior tibial artery and perone al arteries do not enhance peripherally. The celiac axis, superior mesenteric artery are patent, renal arteries are patent, inferior mesenteri c artery likely enhances due to retrograde flow. Dependent atelectatic changes are present within the lungs. Liver shows no mass, gallbladder is unrem arkable. Low-attenuation within the liver may be due to hepatic steatosis. The appendix is normal. PANCREAS: No significant abnormality is seen. SPLEEN: No significant abnormality is seen. ADRENALS: No significant abnormality is seen. KIDNEYS: No significant abnormality is seen. BOWEL: No significant abnormality is seen. PROSTATE/SEMINAL VESICLES: No gross abnormality seen. LYMPH NODES: No greater than 1cm abdominal or pelvic lymph nodes are appreciated. OSSEOUS STRUCTURES: No significant abnormality is seen. OTHER: No significant additional abnormality is seen. IMPRESSION: Possible clot within the distal abdominal aorta, occlusion of the distal, aorta, common i liac arteries with reconstitution as described, difficult to exclude embolic disease to the popliteal arteries, preliminary report discussed telephonically with Dr. Minor at the time of interpretation
[2020-10-15 16:49] LABS: Glucose,Whole Blood 114 mg/dL (75-99)
--- NOTE | 2020-10-15 17:25 | P.CRDCN ---
History of Present Illness Consult date: 10/15/20 Chief complaint: Peripheral arterial disease History of present illness: This is a very pleasant 65-year-old gentleman with a past medical history significant for peripheral arterial disease as well as diabetes and hypertension and dyslipidemia and also significant history of smoking presented to the emergency department today after he was discharged area today after percutaneous peripheral intervention was performed yesterday. The patient was seen in the office recently where he was experiencing bilateral lower extremities intermittent claudication interfering with his daily activities and consistent with Nova class IV. Because of that he underwent an angiogram a few months ago that revealed occluded infrarenal aorta with occluded right and left common iliac arteries. The patient subsequently was referred for surgical consu ltation and he was seen by Dr. Meneses in the office. Giving his obesity as well as multiple risk factor it was felt that he is high risk to undergo aortobifem surgery. Because of that we decided to do a hybrid procedure together and attendant to do crossing the chronic total occlusion of bilateral common iliacs and aorta and for that reason the patient was scheduled yesterday. He underwent yesterday successful percutaneous peripheral intervention with successful crossing the right and left common iliac arteries and aorta and intravascular aortic and iliac repair using the AFX to device with a grade angiographic results by the N and without any complication from right and left common femoral arteries and also from right radial artery. The patient was seen this morning and both feet were warm with a good Doppler signal and he was discharged on dual antiplatelet therapy along with statin. Earlier today he presented back to the hospital where he presented to the emergency department complaining of bilateral lower extremities numbness but no weakness. Both feet were warm and with very weak Doppler signal in both feeds at bedside. An emergent CTA with contrast was performed and revealed acute occlusion of the infrarenal aorta and bilateral iliacs in the stented segment. With that being said the options were either to pursue a TPA drip overnight and reassess the patient tomorrow and taking into account the risk of bleeding with a TPA in the groin as well as systemic bleeding versus doing bilateral explore of the femoral artery and due thrombectomy. After discussing the case with Dr. Meneses we felt that doing doing bilateral explore L of the femoral artery and doing t hrombectomy would be a safer approach to the patient. I discussed that with the patient and his family in the room in details. Otherwise the patient denies any symptoms of chest pain or chest discomfort or shortness of breath and no dizziness or lightheadedness and no feeling of heart racing or fluttering or syncope. From the cardiovascular standpoint of view, the patient can pursue the surgical approach today including exploring both femoral arteries. Past Medical History Past Medical History: Diabetes Mellitus, Hyperlipidemia, Vascular Disorder History of Any Multi-Drug Resistant Organisms: None Reported Past Surgical History: Heart Catheterization, Heart Catheterization With Stent, Hernia Repair, Orthopedic Surgery Additional Past Surgical History / Comment(s): colonoscopy, aortogram,. rt elbow REPLACEMNT Past Anesthesia/Blood Transfusion Reactions: No Reported Reaction Date of Last Stent Placement:: 10/14/20 Past Psychological History: No Psychological Hx Reported Smoking Status: Current every day smoker Past Alcohol Use History: None Reported Additional Past Alcohol Use History / Comment(s): SMOKES 3/4 PPD SINCE AGE 23 Past Drug Use History: None Reported - Past Family History Mother Family Medical History: Cancer Medications and Allergies Home Medications Medication Instructions Recorded Confirmed Type Aspirin EC [Ecotrin Low Dose] 81 mg PO DAILY 01/09/19 10/15/20 History Atorvastatin [Lipitor] 10 mg PO HS 01/09/19 10/15/20 History glipiZIDE [Glucotrol] 10 mg PO AC-BID 01/09/19 10/15/20 History Clopidogrel [Plavix] 75 mg PO DAILY #90 tab 10/15/20 10/15/20 Rx metFORMIN HCL 1,000 mg PO BID 10/15/20 10/15/20 History Allergies Allergy/AdvReac Type Severity Reaction Status Date / Time No Known Allergies Allergy Verified 10/15/20 15:48 Physical Exam Vitals: Vital Signs Temp Pulse Pulse Resp BP BP Pulse Ox 10/15/20 16:38 99.1 F 101 H 16 140/80 97 10/15/20 12:18 98.3 F 103 H 20 118/78 96 Intake and Output 10/15/20 10/15/20 10/15/20 06:59 14:59 22:59 Other: Weight 109.316 kg 109.316 kg - Constitutional General appearance: no acute distress - Respiratory Respiratory: bilateral: diminished - Cardiovascular Rhythm: regular Heart sounds: normal: S1, S2 Results 10/15/20 14:00 10/15/20 14:00 Cardiac Enzymes 10/15/20 Range/Units 14:00 AST 23 (17-59) U/L Coagulation 10/15/20 Range/Units 14:00 PT 10.3 (9.0-12.0) sec APTT 22.6 (22.0-30.0) sec CBC 10/15/20 Range/Units 14:00 WBC 12.9 H (3.8-10.6) k/uL RBC 4.14 L (4.30-5.90) m/uL Hgb 12.9 L (13.0-17.5) gm/dL Hct 37.7 L (39.0-53.0) % Plt Count 209 (150-450) k/uL Comprehensive Metabolic Panel 10/15/20 Range/Units 14:00 Sodium 138 (137-145) mmol/L Potassium 4.2 (3.5-5.1) mmol/L Chloride 106 (98-107) mmol/L Carbon Dioxide 27 (22-30) mmol/L BUN 10 (9-20) mg/dL Creatinine 0.95 (0.66-1.25) mg/dL Glucose 105 H (74-99) mg/dL Calcium 8.9 (8.4-10.2) mg/dL AST 23 (17-59) U/L ALT 18 (4-49) U/L Alkaline Phosphatase 62 (38-126) U/L Total Protein 6.3 (6.3-8.2) g/dL Albumin 3.7 (3.5-5.0) g/dL Current Medications Generic Name Dose Route Start Last Admin Trade Name Freq PRN Reason Stop Dose Admin Heparin Sodium (Porcine) 0 unit 10/15/20 15:06 Heparin Sodium 1,000 Un/Ml (10ml Vl) IV PER PROTOCOL PRN Low PTT Protocol Hydromorphone HCl 1 mg 10/15/20 14:07 Hydromorphone 1 Mg/Ml 1 Ml Syringe IVP Q3HR PRN Severe Pain Hydromorphone HCl 0.5 mg 10/15/20 14:07 Hydromorphone 0.5 Mg/0.5 Ml Syringe IVP Q3HR PRN Moderate Pain Sodium Chloride 1,000 mls @ 75 mls/hr 10/15/20 13:49 10/15/20 14:00 Saline 0.9% IV 10/16/20 03:08 75 mls/hr .[id number] STA Administration Heparin Sodium/Sodium Chloride 250 mls @ 10.002 mls/hr 10/15/20 15:15 10/15/20 15:57 25,000 unit/ Sodium Chloride IV 9.15 units/kg/hr .Q24H JANAE 10.002 mls/hr Administration Protocol 9.15 UNITS/KG/HR Naloxone HCl 0.2 mg 10/15/20 14:07 Naloxone 0.4 Mg/Ml 1 Ml Vial IV Q2M PRN Opioid Reversal Pantoprazole Sodium 40 mg 10/16/20 09:00 Pantoprazole 40 Mg/10 Ml Vial IV DAILY JANAE Intake and Output 10/15/20 10/15/20 10/15/20 06:59 14:59 22:59 Other: Weight 109.316 kg 109.316 kg Patient Weight 10/16/20 06:59 Weight 109.316 kg 10/15/20 14:00 10/15/20 14:00 Assessment and Plan Assessment: Assessment #1 acute limb ischemia #2 peripheral arterial disease and status post bolus percutaneous intervention #3 diabetes type 2 #4 hypertension #5 smoking Plan #1 the patient can pursue the surgical procedure today including bilateral femoral cutdowns and thrombectomy #2 continue the patient on heparin which was started in the emergency department #3 probably start the patient on oral anticoagulation. He potentially might be resistance to Plavix #4 follow-up with the patient We'll continue following up with the patient
[2020-10-15 20:02] LABS: Glucose,Whole Blood 113 mg/dL (75-99)
[2020-10-15] MEDS ORDERED: PROPOFOL 10 MG/ML 20 ML VIAL IV ONE (20:31)
[2020-10-15] MEDS ORDERED: VECURONIUM 10 MG VIAL IV ONE (20:31)
[2020-10-15] MEDS ORDERED: ceFAZolin 1,000 MG VIAL ONE (20:31)
[2020-10-15] MEDS ORDERED: HEPARIN SODIUM,PORCINE 5,000 UNIT/ML 1 ML VIAL ONE (20:31)
[2020-10-15] MEDS ORDERED: PHENYLEPHRINE-0.9% NACL SYG 1,000 MCG/10 ML SYRINGE ONE (20:31)
[2020-10-15] MEDS ORDERED: LIDOCAINE 1% INJ 10MG/ML (20 ML MDV) ONE (20:31)
[2020-10-15] MEDS ORDERED: SODIUM CHLORIDE 0.9% 100 ML BAG ONE (20:31)
[2020-10-15] MEDS ORDERED: ALBUMIN HUMAN 5% (12.5gm) 250 ML BOTTLE IVPB ONE (20:31)
[2020-10-15] MEDS ORDERED: ROCURONIUM 10 MG/ML (5 ML VIAL) IV ONE (20:31)
[2020-10-15] MEDS ORDERED: SODIUM BICARB 8.4% 50 ML SYR (1 MEQ/ML) ONE (20:31)
[2020-10-15] MEDS ORDERED: CALCIUM CHLORIDE 100 MG/ML 10 ML SYRINGE ONE (20:31)
[2020-10-15] MEDS ORDERED: fentaNYL (PF) 50 MCG/ML 2 ML AMP ONE (20:31)
[2020-10-15] MEDS ORDERED: SUCCINYLCHOLINE CHLORIDE 100 MG/5 ML SYR IV ONE (20:31)
[2020-10-15] MEDS ORDERED: LACTATED RINGERS 1,000 ML IV ONE ×3 (20:34→22:57)
[2020-10-15] MEDS ORDERED: SODIUM CHLORIDE 0.9% 100 ML with ceFAZolin 2,000 MG IV ONE ×2 (20:55)
[2020-10-15] MEDS ORDERED: GELATIN SPONGE,ABSORB (LARGE) 1 EACH SPONGE TOPICAL ONE (22:21)
[2020-10-15] MEDS ORDERED: IOPAMIDOL-300 50ML BTL IV ONE ×3 (22:21)
[2020-10-15] MEDS ORDERED: THROMBIN (BOVINE) 5,000 UNIT VIAL TOPICAL ONE (22:21)
[2020-10-15] MEDS ORDERED: HEPARIN SODIUM,PORCINE 10,000 UNIT in SODIUM CHLORIDE 0.9% 1,000 ML IRRIGATION ONE (22:24)
[2020-10-16 00:34] LABS: HGB 11.1 gm/dL (13.0-17.5); MCH 31.8 pg (25.0-35.0); MCHC 34.8 g/dL (31.0-37.0); MCV 91.4 fL (80.0-100.0); Mean Platelet Volume 7.5; Platelet Count 245 k/uL (150-450); RDW 12.8 % (11.5-15.5); WBC 22.3 k/uL (3.8-10.6)
--- NOTE | 2020-10-16 02:49 | P.ANPRN ---
Procedure Note - Anesthesia - Invasive Line Left Arterial Line Time Out Performed: Yes Date of Procedure: 10/16/20 Time of Procedure: 02:14 Location of Patient: OR Preparation: Sterile Prep, Sterile Dressing Arterial Line Location: Brachial Ultrasound Used: No Purpose - Visualization and Identification of Vasculature: No Needle Guage: 20 Image Stored and Saved: No Narrative: Central line placement per sterile protocol utilized. Thready vessel. Had to proceed to brachial for monitoring during conversion to open procedure Left Central Line Time Out Performed: Yes Date of Procedure: 10/16/20 Time of Procedure: 02:34 Location of Patient: OR Preparation: Sterile Prep, Sterile Dressing Arterial Line Location: Brachial Ultrasound Used: Yes Purpose - Visualization and Identification of Vasculature: Yes Needle Guage: 18g angio Image Stored and Saved: Yes Narrative: Central line placement per sterile protocol utilized. +local +angio +cvp +jwire +uneventful dilation and introduction left IJ TLC
[2020-10-16 04:17] LABS: ABG Base Excess -14.8 mmol/L; ABG HCO3 15 mmol/L (21-25); ABG Oxygen Saturation 98.2 % (94-97); ABG PCO2 58 mmHg (35-45); ABG PO2 204 mmHg (83-108); Allen Test Performed? Yes
[2020-10-16 04:24] LABS: ABG PH 7.03 (7.35-7.45)
[2020-10-16 05:21] LABS: Allen Test Performed? Yes
[2020-10-16 05:22] LABS: ABG Base Excess -12.8 mmol/L; ABG HCO3 16 mmol/L (21-25); ABG Oxygen Saturation 98.6 % (94-97); ABG PCO2 50 mmHg (35-45); ABG PH 7.12 (7.35-7.45); ABG PO2 202 mmHg (83-108); ABG TCO2 18 mmol/L (19-24)
[2020-10-16] MEDS ORDERED: propofoL 100 ML IV ONE (06:23)
[2020-10-16 07:42] LABS: ABG Base Excess -14.7 mmol/L; ABG HCO3 16 mmol/L (21-25); ABG Oxygen Saturation 97.3 % (94-97); ABG PCO2 61 mmHg (35-45); ABG PO2 145 mmHg (83-108); ABG TCO2 18 mmol/L (19-24)
[2020-10-16 07:43] LABS: Glucose,Whole Blood 193 mg/dL (75-99)
--- NOTE | 2020-10-16 07:43 | P.GSCN ---
History of Present Illness Consult date: 10/15/20 Reason for Consult: acute aortic occlusion with critical limb ischemia History of present illness: This is a very pleasant 65-year-old gentleman with a past medical history significant for peripheral arterial disease as well as diabetes and hypertension and dyslipidemia and also significant history of smoking presented to the emergency department today after he was discharged area today after percutaneous peripheral intervention was performed yesterday. The patient was seen in the office recently where he was experiencing bilateral lower extremities intermittent claudication interfering with his daily activities and consistent with [place] class IV. He underwent an aortic iliac percutaneous stenting yesterday. He was discharged today with warm feet and flow to the tibial arteries. He then states having bilateral numbness and pain and could barely walk. He then had an emergent CTA which revealed acute infrarenal aortic oc clusion with bilateral external iliac occlusion with occlusion extending to the right femoral artery. I was called at that time to evaluate the CTA and patient and after speaking with Dr. Coyle and the patient it was decided that the safest course would be an open thrombectomy and possible balloon angioplasty or extending a stent instead of thrombolytics with TPA. Due to the severity of disease and new onset neurologic symptoms the patient was scheduled for procedure tonight. Review of Systems All systems: negative Past Medical History Past Medical History: Diabetes Mellitus, Hyperlipidemia, Vascular Disorder History of Any Multi-Drug Resistant Organisms: None Reported Past Surgical History: Heart Catheterization, Heart Catheterization With Stent, Hernia Repair, Orthopedic Surgery Additional Past Surgical History / Comment(s): colonoscopy, aortogram,. rt elbow REPLACEMNT Past Anesthesia/Blood Transfusion Reactions: No Reported Reaction Date of Last Stent Placement:: 10/14/20 Past Psychological History: No Psychological Hx Reported Smoking Status: Current every day smoker Past Alcohol Use History: None Reported Additional Past Alcohol Use History / Comment(s): SMOKES 3/4 PPD SINCE AGE 23 Past Drug Use History: None Reported - Past Family History Mother Family Medical History: Cancer Medications and Allergies Home Medications Medication Instructions Recorded Confirmed Type Aspirin EC [Ecotrin Low Dose] 81 mg PO DAILY 01/09/19 10/15/20 History Atorvastatin [Lipitor] 10 mg PO HS 01/09/19 10/15/20 History glipiZIDE [Glucotrol] 10 mg PO AC-BID 01/09/19 10/15/20 History Clopidogrel [Plavix] 75 mg PO DAILY #90 tab 10/15/20 10/15/20 Rx metFORMIN HCL 1,000 mg PO BID 10/15/20 10/15/20 History Allergies Allergy/AdvReac Type Severity Reaction Status Date / Time No Known Allergies Allergy Verified 10/15/20 15:48 Surgical - Exam Vital Signs Temp Pulse Resp BP Pulse Ox 98.3 F 103 H 20 118/78 96 10/15/20 12:18 10/15/20 12:18 10/15/20 12:18 10/15/20 12:18 10/15/20 12:18 non palpable femoral, popliteal, or pedal pulses. No flow noted to the dp or pt bilaterally. Feet are cold, no tenderness to palpation. - General well developed, well nourished, moderate distress - Eyes PERRL - ENT normal pinna - Neck no masses - Respiratory normal expansion - Cardiovascular Rhythm: regular - Abdomen Abdomen: soft, non tender - Integumentary no rash - Psychiatric oriented to time, oriented to person, oriented to place, speech is normal Results - Labs 10/16/20 00:10 10/15/20 14:00 Abnormal Lab Results - Last 24 Hours (Table) 10/15/20 10/15/20 10/15/20 Range/Units 14:00 14:00 16:48 WBC 12.9 H (3.8-10.6) k/uL RBC 4.14 L (4.30-5.90) m/uL Hgb 12.9 L (13.0-17.5) gm/dL Hct 37.7 L (39.0-53.0) % Neutrophils # 10.1 H (1.3-7.7) k/uL ABG pH (7.35-7.45) ABG pCO2 (35-45) mmHg ABG pO2 (83-108) mmHg ABG HCO3 (21-25) mmol/L ABG Total CO2 (19-24) mmol/L ABG O2 Saturation (94-97) % Glucose 105 H (74-99) mg/dL POC Glucose (mg/dL) 114 H (75-99) mg/dL Crossmatch 10/15/20 10/16/20 10/16/20 Range/Units 20:00 00:10 02:00 WBC 22.3 H (3.8-10.6) k/uL RBC 3.50 L (4.30-5.90) m/uL Hgb 11.1 L (13.0-17.5) gm/dL Hct 32.0 L (39.0-53.0) % Neutrophils # (1.3-7.7) k/uL ABG pH (7.35-7.45) ABG pCO2 (35-45) mmHg ABG pO2 (83-108) mmHg ABG HCO3 (21-25) mmol/L ABG Total CO2 (19-24) mmol/L ABG O2 Saturation (94-97) % Glucose (74-99) mg/dL POC Glucose (mg/dL) 113 H (75-99) mg/dL Crossmatch See Detail 10/16/20 10/16/20 Range/Units 04:00 05:10 WBC (3.8-10.6) k/uL RBC (4.30-5.90) m/uL Hgb (13.0-17.5) gm/dL Hct (39.0-53.0) % Neutrophils # (1.3-7.7) k/uL ABG pH 7.03 L* 7.12 L* (7.35-7.45) ABG pCO2 58 H 50 H (35-45) mmHg ABG pO2 204 H 202 H (83-108) mmHg ABG HCO3 15 L 16 L (21-25) mmol/L ABG Total CO2 18 L (19-24) mmol/L ABG O2 Saturation 98.2 H 98.6 H (94-97) % Glucose (74-99) mg/dL POC Glucose (mg/dL) (75-99) mg/dL Crossmatch Diabetes panel 10/15/20 Range/Units 14:00 Sodium 138 (137-145) mmol/L Potassium 4.2 (3.5-5.1) mmol/L Chloride 106 (98-107) mmol/L Carbon Dioxide 27 (22-30) mmol/L BUN 10 (9-20) mg/dL Creatinine 0.95 (0.66-1.25) mg/dL Glucose 105 H (74-99) mg/dL Calcium 8.9 (8.4-10.2) mg/dL AST 23 (17-59) U/L ALT 18 (4-49) U/L Alkaline Phosphatase 62 (38-126) U/L Total Protein 6.3 (6.3-8.2) g/dL Albumin 3.7 (3.5-5.0) g/dL Calcium panel 10/15/20 Range/Units 14:00 Calcium 8.9 (8.4-10.2) mg/dL Albumin 3.7 (3.5-5.0) g/dL Pituitary panel 10/15/20 Range/Units 14:00 Sodium 138 (137-145) mmol/L Potassium 4.2 (3.5-5.1) mmol/L Chloride 106 (98-107) mmol/L Carbon Dioxide 27 (22-30) mmol/L BUN 10 (9-20) mg/dL Creatinine 0.95 (0.66-1.25) mg/dL Glucose 105 H (74-99) mg/dL Calcium 8.9 (8.4-10.2) mg/dL Adrenal panel 10/15/20 Range/Units 14:00 Sodium 138 (137-145) mmol/L Potassium 4.2 (3.5-5.1) mmol/L Chloride 106 (98-107) mmol/L Carbon Dioxide 27 (22-30) mmol/L BUN 10 (9-20) mg/dL Creatinine 0.95 (0.66-1.25) mg/dL Glucose 105 H (74-99) mg/dL Calcium 8.9 (8.4-10.2) mg/dL Total Bilirubin 0.3 (0.2-1.3) mg/dL AST 23 (17-59) U/L ALT 18 (4-49) U/L Alkaline Phosphatase 62 (38-126) U/L Total Protein 6.3 (6.3-8.2) g/dL Albumin 3.7 (3.5-5.0) g/dL Assessment and Plan Assessment: 1. Acute aortic, iliac and right common femoral artery occlusion 2. Critical limb ischemia 3. Morbid obesity 4. DM 5. HTN Plan: To OR for open thrombectomy and revascularization. Discussed all potential procedures including aortobifemoral bypass and risks of , and limb loss.
[2020-10-16 07:44] LABS: ABG PH 7.03 (7.35-7.45); Allen Test Performed? no
[2020-10-16 07:55] LABS: Ionized Calcium 4.3 mg/dL (4.5-5.3)
[2020-10-16] MEDS ORDERED: MORPHINE SULFATE 4 MG/ML SYRINGE IV PRN (07:56)
[2020-10-16 08:03] LABS: Albumin 2.3 g/dL (3.5-5.0); Calcium 7.5 mg/dL (8.4-10.2); Magnesium 2.2 mg/dL (1.6-2.3); Total Bilirubin 0.4 mg/dL (0.2-1.3); Total Protein 3.8 g/dL (6.3-8.2)
[2020-10-16 08:08] LABS: INR 1.3 (<1.2); Partial Thromboplastin Time 42.5 sec (22.0-30.0); Prothrombin Time 13.1 sec (9.0-12.0)
--- NOTE | 2020-10-16 08:09 | XR ---
EXAMINATION TYPE: XR chest 1V DATE OF EXAM: 10/16/2020 COMPARISON: None HISTORY: Intubation TECHNIQUE: Single frontal view of the chest is obtained. FINDINGS: Endotracheal tube and NG tube are overlying appropriate position, left jugular central keila ous catheter shows the distal tip overlying the region of the confluence of the innominate veins, sup erior vena cava. There are overlying leads. Lung volumes are low. Bandlike area of increased attenuat ion is present in the right upper lobe likely retraction of the minor fissure, there is likely volume loss. Cardiac mediastinal silhouette shows no cardiac enlargement. Apical pleural thickening. IMPRESSION: There is likely right upper lobe atelectasis. Endotracheal tube is overlying the trachea l air column.
[2020-10-16] MEDS ORDERED: CALCIUM GLUCONATE 2 GM in SODIUM CHLORIDE 0.9% 100 ML IVPB ONE (08:13)
[2020-10-16] MEDS ORDERED: INSULIN REGULAR 100 UNIT in SODIUM CHLORIDE 0.9% 100 ML IV SCH (08:15)
[2020-10-16 08:19] LABS: Potassium 6.3 mmol/L (3.5-5.1)
--- NOTE | 2020-10-16 08:24 | FL ---
EXAMINATION TYPE: FL guidance operating room DATE OF EXAM: 10/16/2020 HISTORY: Fluoroscopy time 48 minutes and 10 seconds of fluoroscopy provided. IMPRESSION: 1. Fluoroscopy time.
[2020-10-16] MEDS ORDERED: LACTATED RINGERS 1,000 ML IV ONE (08:30)
[2020-10-16] MEDS ORDERED: DEXTROSE 50% SYRINGE 50 ML IVP STA (08:31)
[2020-10-16] MEDS ORDERED: SODIUM BICARB 8.4% 50 ML SYR (1 MEQ/ML) IV STA ×3 (08:32→19:47)
--- NOTE | 2020-10-16 08:40 | P.OP ---
Date of Procedure: 10/16/20 Preoperative Diagnosis: 1. Acute bilateral critical limb ischemia 2. AortoIliac and right femoral artery acute occlusion Postoperative Diagnosis: 1. Bilateral lower extremity critical limb ischemia 2. Aorto-biIliac artery and stent occlusion 3. Right femoral artery occlusion 4. Proximal infrarenal aortic dissection Procedure(s) Performed: 1. Bilateral femoral artery cutdown 2. Bilateral iliac and femoral angiograms 3. Open thrombectomy of aortic graft and bilateral iliac, femoral arteries 4. Aortogram 5. Transluminal balloon angioplasty of aortic graft, bilateral iliac limbs and right common iliac artery 5. Intravascular ultrasound of aorta, bilateral common iliac arteries, bilateral external iliac arteries, bilateral femoral arteries. 6. Endovascular aortic stent graft extension 7. Laparatomy with Djfrz-sp-ofliddt artery bypass 8. Explantation of aortic bi-iliac graft and right common iliac artery stent 9. Explantation of ventral mesh Implants: 16x8 Kayenta bifucated aortic graft Childers cuff [id number] Anesthesia: GETA Surgeon: Ashish Meneses Pharmacognosist #1: Sabrina Sutton Estimated Blood Loss (ml): 900 Pathology: none sent Condition: critical Disposition: ICU Indications for Procedure: 65-year-old gentleman with previous aorto biiliac stenting for aortic occlusion presented back to the hospital secondary to acute numbness, pain and inability to ambulate and was found to have an acute occlusion of his previously placed graft and stent with occlusion extending down to the right common femoral artery. 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 Patient agreed and presents for open thrombectomy with revascularization, possible bypass. Operative Findings: Aortic graft occlusion with proximal aortic dissection. Description of Procedure: After consent was obtained from the patient and his on the phone patient was brought to the operative suite and laid in a supine position. The area of the abdomen, pelvis down to the knees was prepped and draped in usual sterile fashion. Antibiotic administered prior to incision. Timeout was performed in normal fashion. Oblique incisions were then created at bilateral groins with 10 blade scalpel and dissection was carried down to the common femoral artery with electrocautery bilaterally. The common femoral, profundus femoris and superficial femoral artery were dissected free in a circumferential manner and controlled with vessel loops. Once controlled the patient was administered heparin and followed with serial ACTs and redosed as needed for ACT above 200. Arteriotomies were then performed at bilateral common femoral arteries with some bleeding noted from the proximal aspect of the left common femoral artery but was not pulsatile. There is no pulse noted in the right common femoral artery. Geo catheters were then placed up both femoral arteries under fluoroscopic guidance to the aortic graft. Utilizing a 5 Geo a bilateral thrombectomies were performed with a large amount of thrombus removed. Once multiple passes were performed with removal of thrombus a 8-Thai sheath was placed bilaterally and retrograde angiograms were obtained demonstrating patent external iliac arteries bilaterally. An 035 Glidewire was then placed into the aortic stent and then above into the infrarenal aorta proximal to the stent. Angled catheter was then placed into the aorta and aortogram was obtained demonstrating patency just beneath the renal arteries with hazy appearance of the aorta above the stent graft consistent with possible dissection versus thrombus. The angled catheter was then removed and 035 Glidewire advantage was placed and balloon angioplasty of the aorta and aortic graft was performed. There was some waste noted at the aortic graft the distal aspect just before the bifurcation consistent with severe stenosis. Once completed a pigtail catheter was placed and formal aortogram was obtained. Upon aortogram once again there was an area of concern above the proximal aspect of the graft. To fully visualize this it was determined to place an IVUS catheter. The 8-Thai sheaths were then upsized to 12-Thai sheaths and an 035 IVUS catheter was placed and utilizing intra-arterial ultrasound the aorta renal arteries infrarenal aorta, aortic graft, iliac limbs, external iliac and femoral arteries were visualized and recorded. There was area of question just proximal to the graft consistent with a dissection. There was still some areas of stenosis throughout the graft as well as distal to the common iliac artery on the right therefore an 8 x 60 mm and 18 x 40 mm balloons were placed in the aortic graft as well as the iliac limbs and balloon angioplasties were performed. Once completed aortogram was obtained through a pigtail catheter after removal of the balloons. Upon angiogram once again there was good filling of the infrarenal aorta just above the graft and then no filling into the graft. The pigtail catheter was then withdrawn and placed within the graft partially and aortogram was obtained again demonstrating the same questionable area extending just above the graft. At that time it was determined to place an extension graft in the aorta. The wires were then exchanged for a stiff Amplatz wire on the right. Over the wire the AFX2 introducer sheath was placed after removal of the 12-Thai sheath. Multiple aortograms were then obtained demonstrating landing zone just beneath the renal arteries. A Nano cuff 25 x 75 mm was chosen to be placed due to the renal to bifurcation distance being approximately 90 mm. The Nano cuff was then deployed in normal fashion just beneath the renal arteries. Once completed the overlaps were then ballooned with a Coda balloon. The pigtail catheter had been withdrawn into the iliac limb and placed into the newly placed aortic graft and proximal to this area and aortogram was obtained. Upon aortogram the previously visualized renal arteries were now occluded by the graft after it appeared the graft had watermeloned up with the balloon angioplasty of the graft. The Coda balloon was then placed once again and multiple attempts to pull the graft down failed and therefore decision was made to open the abdomen after discussion with patient's about possible options including leaving the graft in place with the understanding that patient would be on hemodialysis. She stated he understood the risks and thought that the surgery was given be open and therefore we proceeded for the attempt to spare the kidneys and perform an aortobifemoral bypass with explantation of the previously placed stent. The right common femoral sheath was then removed and the femoral artery access site was repaired with 5-0 Prolene suture in a running fashion. Prior to last sutures being placed backbleeding was assessed and shown to be brisk. Once completed attention was then placed to the laparotomy and aortobifemoral bypass. The left femoral sheath was left in place and a guidewire was placed as well as the Coda balloon above the area of the graft utilized for aortic occlusion. A midline incision was then created with a 10 blade scalpel and extension down to the abdominal fascia was performed with electrocautery. The abdomen was then entered and the incision was extended to the pubis and up towards the sternum. An Omni retractor was then placed and the small bowel was placed within the right upper quadrant in normal fashion. The retroperitoneum was then incised and with electrocautery dissection was carried down to the aorta. There was a large amount of fat within the intra-abdominal contents and surrounding the b owel as well as within the retroperitoneum. Further dissection was carried down to the aorta. The aorta was then dissected free up to the renal arteries. The left renal artery was dissected free and visualized. Once good visualization of the aorta was performed the balloon was then placed for occlusion and arteriotomy was created in a vertical fashion. This was extended with [place] scissors. The distal aspect of the aorta was also occluded with vascular clamp. Intraluminal the AFX graft was visualized and grasped with a stat. The graft itself was then cut and utilizing wirecutters the stent cage was cut. The balloon was then deflated and the proximal aspect of the AFX to graft was removed with some difficulty. Once it was removed vascular clamps were placed for proximal control. The distal aspect of the AFX to graft was also removed by gentle traction. Once removed there was good brisk backbleeding noted and aortic clamp was placed. The edges of the aorta were then cleaned up with heavy Alexander scissors and attention was placed to performing aortobifemoral bypass. A 16 x 8 mm Kayenta bifurcated graft was then chosen to be placed. The graft was then spatulated at the proximal aspect in normal fashion and in the side anastomosis was created with 3-0 Prolene suture in a running fashion. Once completed control was released revealing pulsatile flow within the graft. There was some bleeding noted and patient was transfused at that time. Please see anesthesia record for transfusion and fluids. The graft was then tunneled to the femorals. Femoral arteries were then opened with an arteriotomy with 11 blade scalpel and extended with [place] scissors. Good backbleeding was noted from the superficial femoral and profundus femoris bilaterally. The graft was then spatulated and end-to-side anastomosis was created with 5-0 Prolene suture in a running fashion bilaterally. Once completed control was released revealing good pulsatile blood flow in both femorals and superficial femoral and profundus femoris arteries. Hemostasis was obtained with Gelfoam and thrombin, Tisseel. The areas were then copiously irrigated with antibiotic solution. The retroperitoneum was reapproximated with 2-0 Vicryl suture in a running fashion. The fascia was then closed with looped PDS suture in a running fashion. There was a graft noted/hernia mesh at the midline that was removed in attempt to decrease infection rate. This skin was then reapproximated with migel. Both groins were then closed in a multilayer fashion with the skin being closed with migel. The area was then cleansed and dressed with Prevena incisional VAC's. The patient is an critical condition and upon completion had multiphasic signals in bilateral DP. There is also possible palpable pulse in the left PT and DP.
[2020-10-16] MEDS ORDERED: INSULIN REGULAR 100 UNIT/ML VIAL IV ONE ×4 (08:45→21:24)
--- NOTE | 2020-10-16 08:48 | P.CNPUL ---
History of Present Illness Consult date: 10/16/20 Chief complaint: Acute ischemic limbs bilateral, aortic occlusion History of present illness: This is a 65-year-old male patient who came in with acute ischemia involving lower extremities bilaterally. The patient has bilateral claudication and the patient was given a I will take and bilateral iliac artery percutaneous balloon angioplasty followed by aortoiliac percutaneous stenting. Was done as a joint effort between cardiology and vascular surgery. This was done for chronic claudication lower extremities bilaterally. Note that the patient had an aortic occlusion of the distal aspect of the wart the involving the bilateral common il iac arteries. The patient presented back to the emergency department yesterday, and he was having pain and numbness in his lower extremity and he was unable to ambulate. Emergent CT of the vascular structures were done and the patient was found to have an acute infrarenal aortic occlusion with bilateral external iliac occlusion and occlusion extending into the right femoral artery. At that point, the patient was taken to the operating room and the patient underwent THROMBECTOMY WITH REVASCULARIZATION. THE PATIENT'S UNDERWENT AORTOGRAM AND AORTOBIFEM BYPASS WITH STENTING. Postop, the patient was brought back to the intensive care unit. At this point in time the patient is intubated on a mechanical ventilator. Sedated with propofol which is running at 20 mcg/kg per minute and the patient is calm and comfortable and suggested a mechanical ventilator. There was an assist-control mode at the rate of 60 with a tidal volume of 550 FiO2 of 100% with a PEEP of 5. PH was at 7.03 with a pCO2 of 60 and pO2 145. The patient had developed an acute kidney injury. Creatinine is up to 1.9 from a normal baseline. Potassium level was at 6.3 and a serum bicarb was at 17 with a positive anion gap. Lactic acid level has been sent and the results are still pending for now. Meanwhile, the patient's hemoglobin was measured at 11.1. White cell count is at 22.3. During the course of surgery, the patient is a total of 4 units of packed RBC and 2 units of fresh frozen plasma. Platelets were also ordered by vascular surgery. Awaiting the operative note to get further details regarding the surgical course. Chest x-ray postop showed some atelectatic changes in the right upper lobe and some fluid within the upper lobe fissure. ET tube is in a good location. The patient has a triple lumen catheter in his left internal jugular artery. OG tube is also in place. At this point in time, he has one back to his bilateral femoral area and abdominal area. Pulses in the lower extremities are obtainable on a by Doppler involving the posterior tibial. Extremities are warm to the ankle. Feet are cold bilaterally. He is adequately sedated. Note that he is also hypotensive. Most recent blood pressure mean is at 61. The patient is on norepinephrine running at 0.2 mcg/kg per minute. At the same time the patient is receiving IV fluids in the form of LR at the rate of 1 25 mL an hour. Review of Systems ROS unobtainable: due to endotracheal tube Past Medical History Past Medical History: Diabetes Mellitus, Hyperlipidemia, Vascular Disorder History of Any Multi-Drug Resistant Organisms: None Reported Past Surgical History: Heart Catheterization, Heart Catheterization With Stent, Hernia Repair, Orthopedic Surgery Additional Past Surgical History / Comment(s): colonoscopy, aortogram,. rt elbow REPLACEMNT Past Anesthesia/Blood Transfusion Reactions: No Reported Reaction Date of Last Stent Placement:: 10/14/20 Past Psychological History: No Psychological Hx Reported Smoking Status: Current every day smoker Past Alcohol Use History: None Reported Additional Past Alcohol Use History / Comment(s): SMOKES 3/4 PPD SINCE AGE 23 Past Drug Use History: None Reported - Past Family History Mother Family Medical History: Cancer Medications and Allergies Home Medications Medication Instructions Recorded Confirmed Type Aspirin EC [Ecotrin Low Dose] 81 mg PO DAILY 01/09/19 10/15/20 History Atorvastatin [Lipitor] 10 mg PO HS 01/09/19 10/15/20 History glipiZIDE [Glucotrol] 10 mg PO AC-BID 01/09/19 10/15/20 History Clopidogrel [Plavix] 75 mg PO DAILY #90 tab 10/15/20 10/15/20 Rx metFORMIN HCL 1,000 mg PO BID 10/15/20 10/15/20 History Allergies Allergy/AdvReac Type Severity Reaction Status Date / Time No Known Allergies Allergy Verified 10/15/20 15:48 Physical Exam Vitals: Vital Signs Temp Pulse Pulse Resp BP BP Pulse Ox 10/16/20 08:20 115 H 26 H 94/53 100 10/16/20 08:10 116 H 26 H 107/61 99 10/16/20 08:00 98.0 F 121 H 17 137/70 99 10/16/20 07:50 118 H 17 112/67 98 10/16/20 07:40 112 H 16 112/57 100 10/16/20 07:30 115 H 17 10/16/20 07:27 104 H 10/15/20 20:00 99.2 F 101 H 16 137/71 94 L 10/15/20 16:38 99.1 F 101 H 16 140/80 97 10/15/20 12:18 98.3 F 103 H 20 118/78 96 Intake and Output 10/15/20 10/16/20 10/16/20 22:59 06:59 14:59 Intake Total 2211 1783 Output Total 1720 Balance 491 1783 Intake: IV 2211 Invasive Line 1 10 Blood Product 1783 Ffp 24 Cpd Unit 313 [id number] Ffp 24 Cpd Unit 292 [id number] Rc As-1 Unit 310 [id number] Rc As-1 Unit 310 [id number] Rc Pheresis 2 As3 Unit 281 [id number] Rc Pheresis As-3 Unit 277 [id number] Output: Urine 820 Estimated Blood Loss 900 Other: Voiding Method Urinal Weight 109.316 kg ABP, PAP, CO, CI - Last 8 Hours Arterial Blood Pressure 90/55 Arterial Blood Pressure 86/48 Arterial Blood Pressure 86/44 Obese, calm and comfortable, sedated, nonacute distress Orogastric and orotracheal tube are both in place Head exam was generally normal. There was no scleral icterus or corneal arcus. Mucous membranes were moist. Neck was supple and without jugular venous distension, thyromegaly, or carotid b ruits. Carotids were easily palpable bilaterally. There was no adenopathy. The patient has an ET tube which is #8. Orogastric and orotracheal tube are both in place. Neck is short and the patient has a left IJ triple-lumen catheter in place. Cardiac exam revealed the PMI to be normally situated and sized. The rhythm was regular and no extrasystoles were noted during several minutes of auscultation. The first and second heart sounds were normal and physiologic splitting of the second heart sound was noted. There were no murmurs, rubs, clicks, or gallops. Lungs were clear to auscultation and percussion, and with normal diaphragmatic excursion. No wheezes or rales were noted. Abdomen is soft. There is a large anterior abdominal wall surgical wound site with a wound VAC in place. Bowel sounds are hypoactive. No direct tenderness. No rebound tenderness. No guarding. Extremities are warm still the ankle and the feet are cold bilaterally. Posterior tibial pulses can be obtained by Doppler. No skin mottling. No digital clubbing. There is some cyanotic changes in the lower extremities in the toes bilaterally. Neurologically, the patient is sedated. The patient grimaces to painful stimulation. Pupils are equal and reactive to light. The exam itself is nonfocal. Results - Laboratory Findings CBC and BMP: 10/16/20 00:10 10/16/20 07:40 ABG WBC 22.3 k/uL (3.8-10.6) H 10/16/20 00:10 RBC 3.50 m/uL (4.30-5.90) L 10/16/20 00:10 Hgb 11.1 gm/dL (13.0-17.5) L 10/16/20 00:10 Hct 32.0 % (39.0-53.0) L 10/16/20 00:10 MCV 91.4 fL (80.0-100.0) 10/16/20 00:10 MCH 31.8 pg (25.0-35.0) 10/16/20 00:10 MCHC 34.8 g/dL (31.0-37.0) 10/16/20 00:10 RDW 12.8 % (11.5-15.5) 10/16/20 00:10 Plt Count 245 k/uL (150-450) 10/16/20 00:10 MPV 7.5 10/16/20 00:10 Neutrophils % 78 % 10/15/20 14:00 Lymphocytes % 13 % 10/15/20 14:00 Monocytes % 7 % 10/15/20 14:00 Eosinophils % 1 % 10/15/20 14:00 Basophils % 0 % 10/15/20 14:00 Neutrophils # 10.1 k/uL (1.3-7.7) H 10/15/20 14:00 Lymphocytes # 1.6 k/uL (1.0-4.8) 10/15/20 14:00 Monocytes # 0.9 k/uL (0-1.0) 10/15/20 14:00 Eosinophils # 0.1 k/uL (0-0.7) 10/15/20 14:00 Basophils # 0.0 k/uL (0-0.2) 10/15/20 14:00 PT 13.1 sec (9.0-12.0) H 10/16/20 07:40 INR 1.3 (<1.2) H 10/16/20 07:40 APTT 42.5 sec (22.0-30.0) H 10/16/20 07:40 Sample Site karen 10/16/20 07:41 ABG pH 7.03 (7.35-7.45) L* 10/16/20 07:41 ABG pCO2 61 mmHg (35-45) H 10/16/20 07:41 ABG pO2 145 mmHg (83-108) H 10/16/20 07:41 ABG HCO3 16 mmol/L (21-25) L 10/16/20 07:41 ABG Total CO2 18 mmol/L (19-24) L 10/16/20 07:41 ABG O2 Saturation 97.3 % (94-97) H 10/16/20 07:41 ABG Base Excess -14.7 mmol/L 10/16/20 07:41 Julio Test no 10/16/20 07:41 ABG Lactic Acid 15.0 mmol/L (0.5-1.6) H* 10/16/20 07:40 FiO2 100 % 10/16/20 07:41 Sodium 139 mmol/L (137-145) 10/16/20 07:40 Potassium 6.3 mmol/L (3.5-5.1) H* 10/16/20 07:40 Chloride 104 mmol/L (98-107) 10/16/20 07:40 Carbon Dioxide 17 mmol/L (22-30) L 10/16/20 07:40 Anion Gap 18 mmol/L 10/16/20 07:40 BUN 13 mg/dL (9-20) 10/16/20 07:40 Creatinine 1.91 mg/dL (0.66-1.25) H 10/16/20 07:40 Est GFR (CKD-EPI)AfAm 42 (>60 ml/min/1.73 sqM) 10/16/20 07:40 Est GFR (CKD-EPI)NonAf 37 (>60 ml/min/1.73 sqM) 10/16/20 07:40 Glucose 225 mg/dL (74-99) H 10/16/20 07:40 POC Glucose (mg/dL) 193 mg/dL (75-99) H 10/16/20 07:39 POC Glu Land Department Head ID Jil Apodaca 10/16/20 07:39 Calcium 7.5 mg/dL (8.4-10.2) L 10/16/20 07:40 Ionized Calcium Rochelle 4.3 mg/dL (4.5-5.3) L 10/16/20 07:40 Magnesium 2.2 mg/dL (1.6-2.3) 10/16/20 07:40 Total Bilirubin 0.4 mg/dL (0.2-1.3) 10/16/20 07:40 AST 130 U/L (17-59) H 10/16/20 07:40 ALT 42 U/L (4-49) 10/16/20 07:40 Alkaline Phosphatase 30 U/L (38-126) L 10/16/20 07:40 Total Protein 3.8 g/dL (6.3-8.2) L 10/16/20 07:40 Albumin 2.3 g/dL (3.5-5.0) L 10/16/20 07:40 Coronavirus (PCR) Not Detected (Not Detectd) 10/15/20 14:40 PT/INR, D-dimer PT 13.1 sec (9.0-12.0) H 10/16/20 07:40 INR 1.3 (<1.2) H 10/16/20 07:40 Abnormal lab findings: Abnormal Labs 10/15/20 10/15/20 10/15/20 14:00 14:00 16:48 WBC 12.9 H RBC 4.14 L Hgb 12.9 L Hct 37.7 L Neutrophils # 10.1 H PT INR APTT ABG pH ABG pCO2 ABG pO2 ABG HCO3 ABG Total CO2 ABG O2 Saturation ABG Lactic Acid Potassium Carbon Dioxide Creatinine Glucose 105 H POC Glucose (mg/dL) 114 H Calcium Ionized Calcium Rochelle AST Alkaline Phosphatase Total Protein Albumin Crossmatch 10/15/20 10/16/2021 20:00 00:10 02:00 WBC 22.3 H RBC 3.50 L Hgb 11.1 L Hct 32.0 L Neutrophils # PT INR APTT ABG pH ABG pCO2 ABG pO2 ABG HCO3 ABG Total CO2 ABG O2 Saturation ABG Lactic Acid Potassium Carbon Dioxide Creatinine Glucose POC Glucose (mg/dL) 113 H Calcium Ionized Calcium Rochelle AST Alkaline Phosphatase Total Protein Albumin Crossmatch See Detail 10/16/20 10/16/20 10/16/20 04:00 05:10 07:39 WBC RBC Hgb Hct Neutrophils # PT INR APTT ABG pH 7.03 L* 7.12 L* ABG pCO2 58 H 50 H ABG pO2 204 H 202 H ABG HCO3 15 L 16 L ABG Total CO2 18 L ABG O2 Saturation 98.2 H 98.6 H ABG Lactic Acid Potassium Carbon Dioxide Creatinine Glucose POC Glucose (mg/dL) 193 H Calcium Ionized Calcium Rochelle AST Alkaline Phosphatase Total Protein Albumin Crossmatch 10/16/20 10/16/20 10/16/20 07:40 07:40 07:40 WBC RBC Hgb Hct Neutrophils # PT 13.1 H INR 1.3 H APTT 42.5 H ABG pH ABG pCO2 ABG pO2 ABG HCO3 ABG Total CO2 ABG O2 Saturation ABG Lactic Acid 15.0 H* Potassium 6.3 H* Carbon Dioxide 17 L Creatinine 1.91 H Glucose 225 H POC Glucose (mg/dL) Calcium 7.5 L Ionized Calcium Rochelle 4.3 L AST 130 H Alkaline Phosphatase 30 L Total Protein 3.8 L Albumin 2.3 L Crossmatch 10/16/20 07:41 WBC RBC Hgb Hct Neutrophils # PT INR APTT ABG pH 7.03 L* ABG pCO2 61 H ABG pO2 145 H ABG HCO3 16 L ABG Total CO2 18 L ABG O2 Saturation 97.3 H ABG Lactic Acid Potassium Carbon Dioxide Creatinine Glucose POC Glucose (mg/dL) Calcium Ionized Calcium Rochelle AST Alkaline Phosphatase Total Protein Albumin Crossmatch - Diagnostic Findings Chest x-ray: image reviewed Assessment and Plan Plan: 1 acute aortoiliac occlusion post balloon angioplasty and stenting. The patient was taken for an emergent surgical intervention with thrombectomy and revascularization. The patient underwent aortogram and aortobifem bypass surgery with stenting. At this point in time, the patient is hypotensive and acute kidney injury. The patient has Doppler signals in the posterior tibials bilaterally. Ischemic changes in the feet are still present. 2 severe peripheral vascular disease, as stated above 3 severe claudication as stated above 4 acute severe metabolic acidosis, likely lactic acidosis. Awaiting lactic acid levels. 5 acute kidney injury, consider ATN secondary to vascular insult to the kidneys bilaterally. 6 acute hypotension/shock. Patient had intraoperative blood loss and the patient was given a total of 4 units of packed RBC 2 units of fresh frozen plasma and platelet transfusion still pending for now. Meanwhile, the patient is on pressors. Consider volume loss/hypovolemic shock. Consider distributive shock. 7 acute hypoxic and hypercapnic respiratory failure, currently intubated on mechanical ventilator 8 diabetes mellitus 9 acute hyperkalemia 10 history of hypertension 11 history of obesity Plan Continue vent support. Increase the respiratory rate of 26. Drop the FiO2 down to 80% and repeat a blood gas Management of hyperkalemia with calcium gluconate, insulin D50 combination and the ampules of 50 mEq of sodium bicarbonate to the post immediately and potassium level needs to be rechecked Continue IV fluids at the rate of 125 mL an hour of lactated Ringer's Given additional boluses of liter of IV fluids for now Monitor hemoglobin Monitor vascular pulses in lower extremities bilaterally Keep the patient nothing by mouth for now Obtain ultrasound the kidneys Obtain echocardiogram Check a serum lactate and monitor the levels Nephrology consultation Sliding insulin sliding scale coverage for blood sugar control Anticoagulation her vascular surgery. The patient was initially started on heparin drip and later recommendations were made to switch this patient on Lovenox. We'll clarify this with the rest or surgeons. We'll continue to follow make further recommendations based on his progress.
[2020-10-16 08:50] LABS: ABG HCO3 21 mmol/L (21-25); ABG Oxygen Saturation 95.2 % (94-97); ABG PCO2 58 mmHg (35-45); ABG PO2 98 mmHg (83-108); ABG TCO2 23 mmol/L (19-24)
[2020-10-16 08:52] LABS: ABG PH 7.16 (7.35-7.45); Allen Test Performed? no
[2020-10-16 08:58] LABS: Basophils # (A) 0.1 k/uL (0-0.2); Basophils % (A) 0 %; Eosinophils % (A) 0 %; HCT 25.4 % (39.0-53.0); Hypochromasia Slight; Lymphocytes # (A) 2.7 k/uL (1.0-4.8); Lymphocytes % (A) 12 %; MCH 30.2 pg (25.0-35.0); MCHC 31.7 g/dL (31.0-37.0); MCV 95.3 fL (80.0-100.0); Mean Platelet Volume 8.5; Monocytes # (A) 1.2 k/uL (0-1.0); Monocytes % (A) 6 %; Neutrophils % (A) 81 %; Platelet Count 128 k/uL (150-450); RBC 2.66 m/uL (4.30-5.90); RDW 14.5 % (11.5-15.5); WBC 22.1 k/uL (3.8-10.6)
[2020-10-16] MEDS ORDERED: PANTOPRAZOLE 40 MG/10 ML VIAL IV SCH (09:00)
[2020-10-16] MEDS ORDERED: ENOXAPARIN 40 MG/0.4 ML SYRINGE SQ SCH (09:00)
[2020-10-16] MEDS: LACTATED RINGERS 1,000 ML IV SCH ×3 (09:07→23:17)
[2020-10-16] MEDS: NOREPINEPHRINE 32 MG in SODIUM CHLORIDE 0.9% 218 ML IV SCH (09:07)
--- NOTE | 2020-10-16 09:30 | P.CONS ---
History of Present Illness - Reason for Consult Consult date: 10/16/20 hypotension Requesting physician: Ashish Meneses - Chief Complaint numbness bilateral lower extremities - History of Present Illness Patient is a 65-year-old male with known aortic disease who underwent percutaneous peripheral intervention on 10/14 for intravascular aortic and iliac repair and was subsequently discharged home. C3 presented to the hospital secondary to lower extremity numbness without weakness. There was weak dopplerable pulses at bedside. He underwent an emergent CTA with contrast which revealed a acute occlusion of the infrarenal aorta with bilateral iliac. Patient was subsequently taken for emergency surgery with Dr. Meneses and underwent s/p bilateral femoral artery cutdowns and open thrombectomy of aortic graft and bilateral iliac limbs and right common iliac artery, aortio-bifem bypass. Intraoperatively he had 4 units of packed red blood cells and 2 units of FFP. He did have some hypotension and required intraoperative levophed. He was significantly acidotic and hadn't lactic acid of 15 upon arrival to the ICU. He was intubated. Levothroid was at 21. Patient seen and examined at bedside. He is intubated. Case was discussed with Dr. Leo, Dr. Coyle, Dr. Meneses, Dr. Sutton, and Dr. Tran. He is intubated and unresponsive and all information was gatered from the chart Pertinent positives and negatives as discussed in HPI, a complete review of systems was performed and all other systems are negative. General: ill appearing, maximal distress, appears at stated age Derm: Dressing is over midline abdomen and bilateral groin, fidgeting warm, dry Head: atraumatic, normocephalic, symmetric Eyes: EOMI, no lid lag, anicteric sclera, pupils equal round reactive to light ENT: Nose and ears atraumatic, no thrush, no pharyngeal erythema Neck: No thyromegaly, no cervical lymphadenopathy, trachea midline, supple Mouth: no lip lesion, mucus membranes moist Cardiovascular: S1S2 reg, no murmur, positive posterior tibial pulse bilateral, no edema, capillary refill less than 2 seconds Lungs: clear to ascultation bilateral, no ronchi, no rales, no wheeze, no accessory muscle use Abdominal: soft, nontender to palpation, no guarding, no appreciable organomegaly, normal bowel sounds Ext: no gross muscle atrophy, on edema in bilateral , + dopplerable DP R>L Neuro: sedated on vent Psych: sedated on vent Acute aortic, iliac and right femoral artert occlusion with critical limb ischemia - s/p bilateral femoral artery cutdowns and open thrombectomy of aortic graft and bilateral iliac limbs and right common iliac artery, aortio-bifem bypass -Management by vascular surgery Acute blood loss anemia - await repeat CBC , s/p 4 units pRBC, FFP, and platelets -Repeat CBC in 4 hours Hypovolemic shock -IV fluids -Wean pressors as able - check echo Acute respiratory failure secondary postoperative state -Management of pulmonary Anuria JESUS MANUEL, hyperkalemia, Metabolic acidosis due to lactic acidosis - s/p 3 amp of bicarb - consult nephro, d/w Dr. Tran - Hold metformin - Avoid additional nephrotoxic agents - Repeat potassium level in 2 hours - Follow output closely - Continue with IV fluid resuscitation - stat CK Hypocalcemia - replace with blood transfusion DM 2 with hyperglycemia q 6 hours - novolog SSI - Check A1C - hold metformin and gluctrol Obesity with BMI 35.6 -Structured outpatient weight loss Tobacco abuse -Cessation History of hypertension Patient will be transitioned to our service due to complex medical condition DVT prophylaxis: Lovenox Discussed with: patient, nursing Anticipated discharge: undetermined Anticipated discharge place: undetermined A total of 65 minutes was spent on the care of this complex patient more than 50% of the time was spent in counseling and care coordination. Past Medical History Past Medical History: Diabetes Mellitus, Hyperlipidemia, Vascular Disorder History of Any Multi-Drug Resistant Organisms: None Reported Past Surgical History: Heart Catheterization, Heart Catheterization With Stent, Hernia Repair, Orthopedic Surgery Additional Past Surgical History / Comment(s): colonoscopy, aortogram,. rt elbow REPLACEMNT Past Anesthesia/Blood Transfusion Reactions: No Reported Reaction Date of Last Stent Placement:: 10/14/20 Past Psychological History: No Psychological Hx Reported Smoking Status: Current every day smoker Past Alcohol Use History: None Reported Additional Past Alcohol Use History / Comment(s): SMOKES 3/4 PPD SINCE AGE 23 Past Drug Use History: None Reported - Past Family History Mother Family Medical History: Cancer Medications and Allergies Home Medications Medication Instructions Recorded Confirmed Type Aspirin EC [Ecotrin Low Dose] 81 mg PO DAILY 01/09/19 10/15/20 History Atorvastatin [Lipitor] 10 mg PO HS 01/09/19 10/15/20 History glipiZIDE [Glucotrol] 10 mg PO AC-BID 01/09/19 10/15/20 History Clopidogrel [Plavix] 75 mg PO DAILY #90 tab 10/15/20 10/15/20 Rx metFORMIN HCL 1,000 mg PO BID 10/15/20 10/15/20 History Allergies Allergy/AdvReac Type Severity Reaction Status Date / Time No Known Allergies Allergy Verified 10/15/20 15:48 Physical Exam Osteopathic Statement: *. No significant issues noted on an osteopathic structu ral exam other than those noted in the History and Physical/Consult. Vitals: Vital Signs Temp Pulse Pulse Resp BP BP Pulse Ox 10/16/20 09:10 109 H 26 H 103/59 100 10/16/20 09:00 110 H 26 H 103/47 100 10/16/20 08:50 109 H 26 H 105/56 97 10/16/20 08:40 111 H 26 H 88/40 96 10/16/20 08:30 113 H 26 H 90/53 98 10/16/20 08:20 115 H 26 H 94/53 100 10/16/20 08:10 116 H 26 H 107/61 99 10/16/20 08:00 98.0 F 121 H 17 137/70 99 10/16/20 07:50 118 H 17 112/67 98 10/16/20 07:40 112 H 16 112/57 100 10/16/20 07:30 115 H 17 10/16/20 07:27 104 H 10/15/20 20:00 99.2 F 101 H 16 137/71 94 L 10/15/20 16:38 99.1 F 101 H 16 140/80 97 10/15/20 12:18 98.3 F 103 H 20 118/78 96 Intake and Output 10/15/20 10/16/20 10/16/20 22:59 06:59 14:59 Intake Total 2211 1783 1262 Output Total 1720 5 Balance 491 1783 1257 Intake: IV 2211 12 0.9 NS Flush 12 Invasive Line 1 10 Intake, IV Titration 1250 Amount Lactated Ringers 1,000 ml 250 @ 125 mls/hr IV .Q8H JANAE Rx#:[id number] Lactated Ringers 1,000 ml 1000 @ 999 mls/hr IV .Q1H1M ONE Rx#:[id number] Blood Product 1783 Ffp 24 Cpd Unit 313 [id number] Ffp 24 Cpd Unit 292 [id number] Rc As-1 Unit 310 [id number] Rc As-1 Unit 310 [id number] Rc Pheresis 2 As3 Unit 281 [id number] Rc Pheresis As-3 Unit 277 [id number] Output: Urine 820 5 Estimated Blood Loss 900 Other: Voiding Method Urinal Weight 109.316 kg ABP, PAP, CO, CI - Last 8 Hours Arterial Blood Pressure 76/49 Arterial Blood Pressure 71/48 Arterial Blood Pressure 70/48 Arterial Blood Pressure 65/49 Arterial Blood Pressure 50/41 Arterial Blood Pressure 90/55 Arterial Blood Pressure 86/48 Arterial Blood Pressure 86/44 Results CBC & Chem 7: 10/16/20 13:42 10/16/20 11:36 Labs: Abnormal Lab Results - Last 24 Hours (Table) 10/15/20 10/15/20 10/15/20 Range/Units 14:00 14:00 16:48 WBC 12.9 H (3.8-10.6) k/uL RBC 4.14 L (4.30-5.90) m/uL Hgb 12.9 L (13.0-17.5) gm/dL Hct 37.7 L (39.0-53.0) % Plt Count (150-450) k/uL Neutrophils # 10.1 H (1.3-7.7) k/uL Monocytes # (0-1.0) k/uL PT (9.0-12.0) sec INR (<1.2) APTT (22.0-30.0) sec ABG pH (7.35-7.45) ABG pCO2 (35-45) mmHg ABG pO2 (83-108) mmHg ABG HCO3 (21-25) mmol/L ABG Total CO2 (19-24) mmol/L ABG O2 Saturation (94-97) % ABG Lactic Acid (0.5-1.6) mmol/L Potassium (3.5-5.1) mmol/L Carbon Dioxide (22-30) mmol/L Creatinine (0.66-1.25) mg/dL Glucose 105 H (74-99) mg/dL POC Glucose (mg/dL) 114 H (75-99) mg/dL Calcium (8.4-10.2) mg/dL Ionized Calcium Rochelle (4.5-5.3) mg/dL AST (17-59) U/L Alkaline Phosphatase (38-126) U/L Total Protein (6.3-8.2) g/dL Albumin (3.5-5.0) g/dL Crossmatch 10/15/20 10/16/20 10/16/20 Range/Units 20:00 00:10 02:00 WBC 22.3 H (3.8-10.6) k/uL RBC 3.50 L (4.30-5.90) m/uL Hgb 11.1 L (13.0-17.5) gm/dL Hct 32.0 L (39.0-53.0) % Plt Count (150-450) k/uL Neutrophils # (1.3-7.7) k/uL Monocytes # (0-1.0) k/uL PT (9.0-12.0) sec INR (<1.2) APTT (22.0-30.0) sec ABG pH (7.35-7.45) ABG pCO2 (35-45) mmHg ABG pO2 (83-108) mmHg ABG HCO3 (21-25) mmol/L ABG Total CO2 (19-24) mmol/L ABG O2 Saturation (94-97) % ABG Lactic Acid (0.5-1.6) mmol/L Potassium (3.5-5.1) mmol/L Carbon Dioxide (22-30) mmol/L Creatinine (0.66-1.25) mg/dL Glucose (74-99) mg/dL POC Glucose (mg/dL) 113 H (75-99) mg/dL Calcium (8.4-10.2) mg/dL Ionized Calcium Rochelle (4.5-5.3) mg/dL AST (17-59) U/L Alkaline Phosphatase (38-126) U/L Total Protein (6.3-8.2) g/dL Albumin (3.5-5.0) g/dL Crossmatch See Detail 10/16/20 10/16/20 10/16/20 Range/Units 04:00 05:10 07:39 WBC (3.8-10.6) k/uL RBC (4.30-5.90) m/uL Hgb (13.0-17.5) gm/dL Hct (39.0-53.0) % Plt Count (150-450) k/uL Neutrophils # (1.3-7.7) k/uL Monocytes # (0-1.0) k/uL PT (9.0-12.0) sec INR (<1.2) APTT (22.0-30.0) sec ABG pH 7.03 L* 7.12 L* (7.35-7.45) ABG pCO2 58 H 50 H (35-45) mmHg ABG pO2 204 H 202 H (83-108) mmHg ABG HCO3 15 L 16 L (21-25) mmol/L ABG Total CO2 18 L (19-24) mmol/L ABG O2 Saturation 98.2 H 98.6 H (94-97) % ABG Lactic Acid (0.5-1.6) mmol/L Potassium (3.5-5.1) mmol/L Carbon Dioxide (22-30) mmol/L Creatinine (0.66-1.25) mg/dL Glucose (74-99) mg/dL POC Glucose (mg/dL) 193 H (75-99) mg/dL Calcium (8.4-10.2) mg/dL Ionized Calcium Rochelle (4.5-5.3) mg/dL AST (17-59) U/L Alkaline Phosphatase (38-126) U/L Total Protein (6.3-8.2) g/dL Albumin (3.5-5.0) g/dL Crossmatch 10/16/20 10/16/20 10/16/20 Range/Units 07:40 07:40 07:40 WBC 22.1 H (3.8-10.6) k/uL RBC 2.66 L (4.30-5.90) m/uL Hgb 8.0 L D (13.0-17.5) gm/dL Hct 25.4 L (39.0-53.0) % Plt Count 128 L (150-450) k/uL Neutrophils # 18.0 H (1.3-7.7) k/uL Monocytes # 1.2 H (0-1.0) k/uL PT 13.1 H (9.0-12.0) sec INR 1.3 H (<1.2) APTT 42.5 H (22.0-30.0) sec ABG pH (7.35-7.45) ABG pCO2 (35-45) mmHg ABG pO2 (83-108) mmHg ABG HCO3 (21-25) mmol/L ABG Total CO2 (19-24) mmol/L ABG O2 Saturation (94-97) % ABG Lactic Acid (0.5-1.6) mmol/L Potassium 6.3 H* (3.5-5.1) mmol/L Carbon Dioxide 17 L (22-30) mmol/L Creatinine 1.91 H (0.66-1.25) mg/dL Glucose 225 H (74-99) mg/dL POC Glucose (mg/dL) (75-99) mg/dL Calcium 7.5 L (8.4-10.2) mg/dL Ionized Calcium Rochelle 4.3 L (4.5-5.3) mg/dL AST 130 H (17-59) U/L Alkaline Phosphatase 30 L (38-126) U/L Total Protein 3.8 L (6.3-8.2) g/dL Albumin 2.3 L (3.5-5.0) g/dL Crossmatch 10/16/20 10/16/20 10/16/20 Range/Units 07:40 07:41 08:49 WBC (3.8-10.6) k/uL RBC (4.30-5.90) m/uL Hgb (13.0-17.5) gm/dL Hct (39.0-53.0) % Plt Count (150-450) k/uL Neutrophils # (1.3-7.7) k/uL Monocytes # (0-1.0) k/uL PT (9.0-12.0) sec INR (<1.2) APTT (22.0-30.0) sec ABG pH 7.03 L* 7.16 L* (7.35-7.45) ABG pCO2 61 H 58 H (35-45) mmHg ABG pO2 145 H (83-108) mmHg ABG HCO3 16 L (21-25) mmol/L ABG Total CO2 18 L (19-24) mmol/L ABG O2 Saturation 97.3 H (94-97) % ABG Lactic Acid 15.0 H* (0.5-1.6) mmol/L Potassium (3.5-5.1) mmol/L Carbon Dioxide (22-30) mmol/L Creatinine (0.66-1.25) mg/dL Glucose (74-99) mg/dL POC Glucose (mg/dL) (75-99) mg/dL Calcium (8.4-10.2) mg/dL Ionized Calcium Rochelle (4.5-5.3) mg/dL AST (17-59) U/L Alkaline Phosphatase (38-126) U/L Total Protein (6.3-8.2) g/dL Albumin (3.5-5.0) g/dL Crossmatch
--- NOTE | 2020-10-16 09:36 | US ---
EXAMINATION TYPE: US kidneys/renal and bladder DATE OF EXAM: 10/16/2020 COMPARISON: NONE CLINICAL HISTORY: JESUS MANUEL oliguria. ICU intubated patient has had no urine output since recent vascular s urgery EXAM MEASUREMENTS: Right Kidney: 9.8 x 4.4 x 5.0 cm Left Kidney: 10.2 x 4.5 x 6.1 cm Right Kidney: No hydronephrosis or masses seen Left Kidney: No hydronephrosis or masses seen Bladder: large bandage post surgery obscured view of bladder IMPRESSION: 1. Limited examination with poor acoustic window but no obvious hydronephrosis is seen bilaterally. 2. Urinary bladder could not be evaluated due to overlying bandage.
[2020-10-16 10:11] LABS: Glucose,Whole Blood 315 mg/dL (75-99)
[2020-10-16 10:16] LABS: Glucose,Whole Blood 330 mg/dL (75-99)
[2020-10-16] MEDS: INSULIN ASPART (NovoLOG) 100 UNIT/ML VIAL SQ SCH ×3 (10:43→17:33)
[2020-10-16] MEDS: CHLORHEXIDINE GLUCONATE 15 ML CUP MUCOUS MEM SCH ×2 (10:44→21:53)
[2020-10-16 11:38] LABS: ABG Base Excess -11.7 mmol/L; ABG HCO3 17 mmol/L (21-25); ABG Oxygen Saturation 95.1 % (94-97); ABG PCO2 45 mmHg (35-45); ABG PO2 98 mmHg (83-108); ABG TCO2 18 mmol/L (19-24); Allen Test Performed? Yes
[2020-10-16 11:41] LABS: ABG PH 7.18 (7.35-7.45)
--- NOTE | 2020-10-16 12:03 | P.PN ---
Subjective This is a 65-year-old male past medical history significant for peripheral arterial disease, diabetes mellitus, hypertension, dyslipidemia and chronic nicotine dependence. He underwent percutaneous peripheral intervention and return to the emergency department complaining of lower extremity numbness and pain. He underwent an emergent CTA revealed acute intracranial aortic occlusion with bilateral external iliac occlusion with occlusion extending to the right femoral artery. He underwent extensive surgical intervention last night. He underwent bilateral femoral artery cutdown, bilateral iliac and femoral angiograms, open thrombectomy of the aortic graft and bilateral iliac, femoral arteries, balloon angioplasty of the aortic graft, bilateral iliac limbs and right common iliac artery, endovascular aortic stent graft extension, laparotomy with aortobifemoral artery bypass and explantation of aortic biiliac graft and right common iliac artery stents and ventral mesh. Laboratory data reviewed, WBC 22.1, hemoglobin 8, platelets 128, INR 1.3, pH 7.18, pCO2 45 and pO2 98, sodium 139, potassium 6.3, creatinine 1.91, magnesium 2.2, CK 5647. Most recent echocardiogram obtained in the office 2019 revealed preserved LV systolic function with EF 55% with mild MR. Most recent stress test was a lexiscan stress test in the office in 2019 was negative for reversible ischemia. GENERAL: In no acute distress maintained on mechanical ventilation NECK: Supple without JVD or thyromegaly. LUNGS: Breath sounds clear to auscultation bilaterally. Respiration equal and unlabored. No wheezes, rales or rhonchi. HEART: Regular rate and rhythm without murmurs, rubs or gallops. S1 and S2 heard. EXTREMITIES: No edema. No clubbing or cyanosis. Dopper DP pulses, R>L ASSESSMENT Acute limb ischemia, bilateral Aorto-iliac and right femoral artery occlusion s/p surgical repair and stent explantation Anemia Hypovolemic shock Metabolic acidosis Hyperkalemia Leuckocytosis Acute kidney injury Hypotension Diabetes mellitus History of hypertension Dyslipidemia PLAN Continue levophed for blood pressure support. Echocardiogram obtained and will be reviewed. Ventilator management per critical care team. Hyperkalemia treatment. We will continue to follow and make recommendations accordingly. Nurse Practitioner note has been reviewed, I agree with a documented findings and plan of care. Patient was seen and examined. Objective - Vital Signs Vital signs: Vital Signs Temp 97.4 F L 10/16/20 10:49 Pulse 105 H 10/16/20 11:00 Resp 26 H 10/16/20 11:00 BP 97/51 10/16/20 11:00 Pulse Ox 100 10/16/20 11:00 Intake & Output 10/15/20 10/16/20 10/16/20 18:59 06:59 18:59 Intake Total 3994 2876 Output Total 220 1500 315 Balance -220 2494 2561 Weight 109.316 kg Intake: IV 2211 24 0.9 NS Flush 24 Invasive Line 1 10 Intake, IV Titration 2525 Amount Calcium Gluconate 2 gm In 100 Sodium Chloride 0.9% 100 ml @ 100 mls/hr IVPB ONCE ONE Rx#:[id number] Lactated Ringers 1,000 ml 375 @ 125 mls/hr IV .Q8H JANAE Rx#:[id number] Lactated Ringers 1,000 ml 2000 @ 999 mls/hr IV .Q1H1M ONE Rx#:[id number] ceFAZolin 2 gm In Sodium 50 Chloride 0.9% 50 ml @ 100 mls/hr IVPB Q8HR ON LICENSE OF [facility] Rx# :[id number] Blood Product 1783 327 Ffp 24 Cpd Unit 313 [id number] Ffp 24 Cpd Unit 292 [id number] Platelet Pheresis Pas 327 Psoralen Unit [id number] Rc As-1 Unit 310 [id number] Rc As-1 Unit 310 [id number] Rc Pheresis 2 As3 Unit 281 [id number] Rc Pheresis As-3 Unit 277 [id number] Output: Gastric Drainage 300 Urine 220 600 15 Estimated Blood Loss 900 Other: Voiding Method Urinal Indwelling Catheter ABP, PAP, CO, CI - Last Documented Arterial Blood Pressure 101/55 - Labs CBC & Chem 7: 10/16/20 07:40 10/16/20 07:40 Labs: Abnormal Lab Results - Last 24 Hours (Table) 10/15/20 10/15/20 10/15/20 Range/Units 14:00 14:00 16:48 WBC 12.9 H (3.8-10.6) k/uL RBC 4.14 L (4.30-5.90) m/uL Hgb 12.9 L (13.0-17.5) gm/dL Hct 37.7 L (39.0-53.0) % Plt Count (150-450) k/uL Neutrophils # 10.1 H (1.3-7.7) k/uL Monocytes # (0-1.0) k/uL PT (9.0-12.0) sec INR (<1.2) APTT (22.0-30.0) sec ABG pH (7.35-7.45) ABG pCO2 (35-45) mmHg ABG pO2 (83-108) mmHg ABG HCO3 (21-25) mmol/L ABG Total CO2 (19-24) mmol/L ABG O2 Saturation (94-97) % ABG Lactic Acid (0.5-1.6) mmol/L Potassium (3.5-5.1) mmol/L Carbon Dioxide (22-30) mmol/L Creatinine (0.66-1.25) mg/dL Glucose 105 H (74-99) mg/dL POC Glucose (mg/dL) 114 H (75-99) mg/dL Calcium (8.4-10.2) mg/dL Ionized Calcium Rochelle (4.5-5.3) mg/dL AST (17-59) U/L Alkaline Phosphatase (38-126) U/L Creatine Kinase (55-170) U/L Total Protein (6.3-8.2) g/dL Albumin (3.5-5.0) g/dL Crossmatch 10/15/20 10/16/20 10/16/20 Range/Units 20:00 00:10 02:00 WBC 22.3 H (3.8-10.6) k/uL RBC 3.50 L (4.30-5.90) m/uL Hgb 11.1 L (13.0-17.5) gm/dL Hct 32.0 L (39.0-53.0) % Plt Count (150-450) k/uL Neutrophils # (1.3-7.7) k/uL Monocytes # (0-1.0) k/uL PT (9.0-12.0) sec INR (<1.2) APTT (22.0-30.0) sec ABG pH (7.35-7.45) ABG pCO2 (35-45) mmHg ABG pO2 (83-108) mmHg ABG HCO3 (21-25) mmol/L ABG Total CO2 (19-24) mmol/L ABG O2 Saturation (94-97) % ABG Lactic Acid (0.5-1.6) mmol/L Potassium (3.5-5.1) mmol/L Carbon Dioxide (22-30) mmol/L Creatinine (0.66-1.25) mg/dL Glucose (74-99) mg/dL POC Glucose (mg/dL) 113 H (75-99) mg/dL Calcium (8.4-10.2) mg/dL Ionized Calcium Rochelle (4.5-5.3) mg/dL AST (17-59) U/L Alkaline Phosphatase (38-126) U/L Creatine Kinase (55-170) U/L Total Protein (6.3-8.2) g/dL Albumin (3.5-5.0) g/dL Crossmatch See Detail 10/16/20 10/16/20 10/16/20 Range/Units 04:00 05:10 07:39 WBC (3.8-10.6) k/uL RBC (4.30-5.90) m/uL Hgb (13.0-17.5) gm/dL Hct (39.0-53.0) % Plt Count (150-450) k/uL Neutrophils # (1.3-7.7) k/uL Monocytes # (0-1.0) k/uL PT (9.0-12.0) sec INR (<1.2) APTT (22.0-30.0) sec ABG pH 7.03 L* 7.12 L* (7.35-7.45) ABG pCO2 58 H 50 H (35-45) mmHg ABG pO2 204 H 202 H (83-108) mmHg ABG HCO3 15 L 16 L (21-25) mmol/L ABG Total CO2 18 L (19-24) mmol/L ABG O2 Saturation 98.2 H 98.6 H (94-97) % ABG Lactic Acid (0.5-1.6) mmol/L Potassium (3.5-5.1) mmol/L Carbon Dioxide (22-30) mmol/L Creatinine (0.66-1.25) mg/dL Glucose (74-99) mg/dL POC Glucose (mg/dL) 193 H (75-99) mg/dL Calcium (8.4-10.2) mg/dL Ionized Calcium Rochelle (4.5-5.3) mg/dL AST (17-59) U/L Alkaline Phosphatase (38-126) U/L Creatine Kinase (55-170) U/L Total Protein (6.3-8.2) g/dL Albumin (3.5-5.0) g/dL Crossmatch 10/16/20 10/16/20 10/16/20 Range/Units 07:40 07:40 07:40 WBC 22.1 H (3.8-10.6) k/uL RBC 2.66 L (4.30-5.90) m/uL Hgb 8.0 L D (13.0-17.5) gm/dL Hct 25.4 L (39.0-53.0) % Plt Count 128 L (150-450) k/uL Neutrophils # 18.0 H (1.3-7.7) k/uL Monocytes # 1.2 H (0-1.0) k/uL PT 13.1 H (9.0-12.0) sec INR 1.3 H (<1.2) APTT 42.5 H (22.0-30.0) sec ABG pH (7.35-7.45) ABG pCO2 (35-45) mmHg ABG pO2 (83-108) mmHg ABG HCO3 (21-25) mmol/L ABG Total CO2 (19-24) mmol/L ABG O2 Saturation (94-97) % ABG Lactic Acid (0.5-1.6) mmol/L Potassium 6.3 H* (3.5-5.1) mmol/L Carbon Dioxide 17 L (22-30) mmol/L Creatinine 1.91 H (0.66-1.25) mg/dL Glucose 225 H (74-99) mg/dL POC Glucose (mg/dL) (75-99) mg/dL Calcium 7.5 L (8.4-10.2) mg/dL Ionized Calcium Rochelle 4.3 L (4.5-5.3) mg/dL AST 130 H (17-59) U/L Alkaline Phosphatase 30 L (38-126) U/L Creatine Kinase (55-170) U/L Total Protein 3.8 L (6.3-8.2) g/dL Albumin 2.3 L (3.5-5.0) g/dL Crossmatch 10/16/20 10/16/20 10/16/20 Range/Units 07:40 07:40 07:41 WBC (3.8-10.6) k/uL RBC (4.30-5.90) m/uL Hgb (13.0-17.5) gm/dL Hct (39.0-53.0) % Plt Count (150-450) k/uL Neutrophils # (1.3-7.7) k/uL Monocytes # (0-1.0) k/uL PT (9.0-12.0) sec INR (<1.2) APTT (22.0-30.0) sec ABG pH 7.03 L* (7.35-7.45) ABG pCO2 61 H (35-45) mmHg ABG pO2 145 H (83-108) mmHg ABG HCO3 16 L (21-25) mmol/L ABG Total CO2 18 L (19-24) mmol/L ABG O2 Saturation 97.3 H (94-97) % ABG Lactic Acid 15.0 H* (0.5-1.6) mmol/L Potassium (3.5-5.1) mmol/L Carbon Dioxide (22-30) mmol/L Creatinine (0.66-1.25) mg/dL Glucose (74-99) mg/dL POC Glucose (mg/dL) (75-99) mg/dL Calcium (8.4-10.2) mg/dL Ionized Calcium Rochelle (4.5-5.3) mg/dL AST (17-59) U/L Alkaline Phosphatase (38-126) U/L Creatine Kinase 5647 H* (55-170) U/L Total Protein (6.3-8.2) g/dL Albumin (3.5-5.0) g/dL Crossmatch 10/16/20 10/16/20 10/16/20 Range/Units 08:49 10:09 10:14 WBC (3.8-10.6) k/uL RBC (4.30-5.90) m/uL Hgb (13.0-17.5) gm/dL Hct (39.0-53.0) % Plt Count (150-450) k/uL Neutrophils # (1.3-7.7) k/uL Monocytes # (0-1.0) k/uL PT (9.0-12.0) sec INR (<1.2) APTT (22.0-30.0) sec ABG pH 7.16 L* (7.35-7.45) ABG pCO2 58 H (35-45) mmHg ABG pO2 (83-108) mmHg ABG HCO3 (21-25) mmol/L ABG Total CO2 (19-24) mmol/L ABG O2 Saturation (94-97) % ABG Lactic Acid (0.5-1.6) mmol/L Potassium (3.5-5.1) mmol/L Carbon Dioxide (22-30) mmol/L Creatinine (0.66-1.25) mg/dL Glucose (74-99) mg/dL POC Glucose (mg/dL) 315 H 330 H (75-99) mg/dL Calcium (8.4-10.2) mg/dL Ionized Calcium Rochelle (4.5-5.3) mg/dL AST (17-59) U/L Alkaline Phosphatase (38-126) U/L Creatine Kinase (55-170) U/L Total Protein (6.3-8.2) g/dL Albumin (3.5-5.0) g/dL Crossmatch
[2020-10-16 12:04] LABS: Glucose,Whole Blood 324 mg/dL (75-99)
[2020-10-16 12:13] LABS: Ionized Calcium 3.9 mg/dL (4.5-5.3)
[2020-10-16] MEDS ORDERED: INSULIN ASPART (NovoLOG) 100 UNIT/ML VIAL SQ ONE (12:18)
[2020-10-16 12:27] LABS: Calcium 7.1 mg/dL (8.4-10.2)
[2020-10-16 12:45] LABS: Potassium 6.2 mmol/L (3.5-5.1)
--- NOTE | 2020-10-16 12:51 | ECHOF ---
Referral Reason:post op aorta bifem, CHF MEASUREMENTS -------- HEIGHT: 175.3 cm WEIGHT: 109.3 kg BP: MV E Giovanni: 0.55 m/s MV DecT: 128 ms MV A Giovanni: 0.98 m/s MV E/A Ratio: 0.56 AV maxP.49 mmHg AV meanP.33 mmHg RAP: 5.00 mmHg RVSP: 14.63 mmHg FINDINGS -------- Sinus rhythm. This was a technically difficult study with suboptimal views. Pt. on a vent. Grossly normal LV size and systolic function. Unable to comment on regional wall motion. Overall le ft ventricular systolic function is normal with, an EF between 55 - 60 %. The RV was not well visualized. The left atrium was not well visualized. The right atrium was not well visualized. Lumason used The aortic valve was not well visualized. The mitral valve was not well visualized. There is trace mitral regurgitation. The tricuspid valve was not well visualized. Trace tricuspid regurgitation present. Right ventric ular systolic pressure is normal at < 35 mmHg. The pulmonic valve was not well visualized. There is no pulmonic regurgitation present. The aortic root size is normal. IVC Not well visulized. There is no pericardial effusion. CONCLUSIONS -------- 1. Sinus rhythm. 2. This was a technically difficult study with suboptimal views. 3. Pt. on a vent. 4. Grossly normal LV size and systolic function. Unable to comment on regional wall motion. 5. Overall left ventricular systolic function is normal with, an EF between 55 - 60 %. 6. The left atrium was not well visualized. 7. The aortic valve was not well visualized. 8. There is trace mitral regurgitation. 9. Trace tricuspid regurgitation present. 10. There is no pericardial effusion. SALES MERCHANDISER: Shahana Garcia RD
[2020-10-16 13:23] LABS: Glucose,Whole Blood 320 mg/dL (75-99)
[2020-10-16] MEDS: SODIUM CHLORIDE 0.45% 1,000 ML with SODIUM BICARB (1 MEQ/ML) 100 ML IV SCH ×4 (13:26→22:16)
[2020-10-16 13:55] LABS: HGB 8.6 gm/dL (13.0-17.5); MCH 31.7 pg (25.0-35.0); MCHC 34.6 g/dL (31.0-37.0); MCV 91.4 fL (80.0-100.0); Mean Platelet Volume 8.3; Platelet Count 118 k/uL (150-450); RBC 2.73 m/uL (4.30-5.90); RDW 14.5 % (11.5-15.5); WBC 24.2 k/uL (3.8-10.6)
[2020-10-16] MEDS ORDERED: HEPARIN SODIUM 1,000 UN/ML (10ML VL) IV PRN (14:16)
[2020-10-16] MEDS ORDERED: HEPARIN SOD,PORK IN 0.45% NACL 25,000 UNIT in 0.45% NACL 1 250ML.BAG IV SCH (14:30)
[2020-10-16 15:01] LABS: ABG Base Excess -12.2 mmol/L; ABG HCO3 15 mmol/L (21-25); ABG Oxygen Saturation 98.3 % (94-97); ABG PCO2 37 mmHg (35-45); ABG PH 7.23 (7.35-7.45); ABG PO2 155 mmHg (83-108); ABG TCO2 17 mmol/L (19-24)
[2020-10-16 15:03] LABS: Allen Test Performed? No
[2020-10-16 16:07] LABS: Calcium 6.6 mg/dL (8.4-10.2)
[2020-10-16 16:15] LABS: Potassium 6.2 mmol/L (3.5-5.1)
[2020-10-16] MEDS ORDERED: CALCIUM CHLORIDE 100 MG/ML 10 ML SYRINGE IVP STA (16:21)
[2020-10-16 16:51] LABS: Glucose,Whole Blood 231 mg/dL (75-99)
--- NOTE | 2020-10-16 16:54 | P.PN ---
Subjective Progress Note Date: 10/16/20 It was evaluated in reference to a concern over increasing swelling/tightness of the left calf. According to nursing staff this left calf swelling has progressively become more severe and concern is expressed for the possibility of compartment syndrome. My evaluation demonstrated a significant discrepancy in size between the left and right calf of the left calf being significantly more swollen and tense to palpation. I discussed this in great detail with the patient's spouse indicating my recommendation for fasciotomy to help avoid any limb complication should he survive this event. The procedure, risk and benefits were discussed. The patient's gave verbal permission. We will proceed with fasciotomy at this time. Additionally will place a dialysis catheter for anticipated dialysis need. Objective - Vital Signs Vital signs: Vital Signs Temp 97.6 F 10/16/20 16:00 Pulse 105 H 10/16/20 16:00 Resp 26 H 10/16/20 16:00 BP 116/40 10/16/20 16:00 Pulse Ox 94 L 10/16/20 16:00 Intake & Output 10/15/20 10/16/20 10/16/20 18:59 06:59 18:59 Intake Total 3994 3832.152 Output Total 220 1500 355 Balance -220 2494 3477.152 Weight 109.316 kg Intake: IV 2211 54 0.9 NS Flush 54 Invasive Line 1 10 Intake, IV Titration 3451.152 Amount Calcium Gluconate 2 gm In 100 Sodium Chloride 0.9% 100 ml @ 100 mls/hr IVPB ONCE ONE Rx#:[id number] Lactated Ringers 1,000 ml 750 @ 125 mls/hr IV .Q8H JANAE Rx#:[id number] Lactated Ringers 1,000 ml 2000 @ 999 mls/hr IV .Q1H1M ONE Rx#:[id number] Sodium Chloride 0.45% 1, 375 000 ml @ 125 mls/hr IV . Q8H48M JANAE with Sodium Bicarb (1 Meq/ml) 100 ml Rx#:[id number] ceFAZolin 2 gm In Sodium 100 Chloride 0.9% 50 ml @ 100 mls/hr IVPB Q8HR JANAE Rx# :[id number] propofoL 1,000 mg In 126.152 Empty Bag 1 bag @ Titrate IV .Q0M [facility] Rx#: [id number] Blood Product 1783 327 Ffp 24 Cpd Unit 313 [id number] Ffp 24 Cpd Unit 292 [id number] Platelet Pheresis Pas 327 Psoralen Unit [id number] Rc As-1 Unit 310 [id number] Rc As-1 Unit 310 [id number] Rc Pheresis 2 As3 Unit 281 [id number] Rc Pheresis As-3 Unit 277 [id number] Output: Gastric Drainage 300 Urine 220 600 55 Estimated Blood Loss 900 Other: Voiding Method Urinal Indwelling Catheter ABP, PAP, CO, CI - Last Documented Arterial Blood Pressure 60/49 - Labs CBC & Chem 7: 10/16/20 13:42 10/16/20 15:45 Labs: Abnormal Lab Results - Last 24 Hours (Table) 10/15/20 10/16/20 10/16/20 Range/Units 20:00 00:10 02:00 WBC 22.3 H (3.8-10.6) k/uL RBC 3.50 L (4.30-5.90) m/uL Hgb 11.1 L (13.0-17.5) gm/dL Hct 32.0 L (39.0-53.0) % Plt Count (150-450) k/uL Neutrophils # (1.3-7.7) k/uL Monocytes # (0-1.0) k/uL PT (9.0-12.0) sec INR (<1.2) APTT (22.0-30.0) sec ABG pH (7.35-7.45) ABG pCO2 (35-45) mmHg ABG pO2 (83-108) mmHg ABG HCO3 (21-25) mmol/L ABG Total CO2 (19-24) mmol/L ABG O2 Saturation (94-97) % ABG Lactic Acid (0.5-1.6) mmol/L Potassium (3.5-5.1) mmol/L Carbon Dioxide (22-30) mmol/L Creatinine (0.66-1.25) mg/dL Glucose (74-99) mg/dL POC Glucose (mg/dL) 113 H (75-99) mg/dL Calcium (8.4-10.2) mg/dL Ionized Calcium Rochelle (4.5-5.3) mg/dL AST (17-59) U/L Alkaline Phosphatase (38-126) U/L Creatine Kinase (55-170) U/L Total Protein (6.3-8.2) g/dL Albumin (3.5-5.0) g/dL Crossmatch See Detail 10/16/20 10/16/20 10/16/20 Range/Units 04:00 05:10 07:39 WBC (3.8-10.6) k/uL RBC (4.30-5.90) m/uL Hgb (13.0-17.5) gm/dL Hct (39.0-53.0) % Plt Count (150-450) k/uL Neutrophils # (1.3-7.7) k/uL Monocytes # (0-1.0) k/uL PT (9.0-12.0) sec INR (<1.2) APTT (22.0-30.0) sec ABG pH 7.03 L* 7.12 L* (7.35-7.45) ABG pCO2 58 H 50 H (35-45) mmHg ABG pO2 204 H 202 H (83-108) mmHg ABG HCO3 15 L 16 L (21-25) mmol/L ABG Total CO2 18 L (19-24) mmol/L ABG O2 Saturation 98.2 H 98.6 H (94-97) % ABG Lactic Acid (0.5-1.6) mmol/L Potassium (3.5-5.1) mmol/L Carbon Dioxide (22-30) mmol/L Creatinine (0.66-1.25) mg/dL Glucose (74-99) mg/dL POC Glucose (mg/dL) 193 H (75-99) mg/dL Calcium (8.4-10.2) mg/dL Ionized Calcium Rochelle (4.5-5.3) mg/dL AST (17-59) U/L Alkaline Phosphatase (38-126) U/L Creatine Kinase (55-170) U/L Total Protein (6.3-8.2) g/dL Albumin (3.5-5.0) g/dL Crossmatch 10/16/20 10/16/20 10/16/20 Range/Units 07:40 07:40 07:40 WBC 22.1 H (3.8-10.6) k/uL RBC 2.66 L (4.30-5.90) m/uL Hgb 8.0 L D (13.0-17.5) gm/dL Hct 25.4 L (39.0-53.0) % Plt Count 128 L (150-450) k/uL Neutrophils # 18.0 H (1.3-7.7) k/uL Monocytes # 1.2 H (0-1.0) k/uL PT 13.1 H (9.0-12.0) sec INR 1.3 H (<1.2) APTT 42.5 H (22.0-30.0) sec ABG pH (7.35-7.45) ABG pCO2 (35-45) mmHg ABG pO2 (83-108) mmHg ABG HCO3 (21-25) mmol/L ABG Total CO2 (19-24) mmol/L ABG O2 Saturation (94-97) % ABG Lactic Acid (0.5-1.6) mmol/L Potassium 6.3 H* (3.5-5.1) mmol/L Carbon Dioxide 17 L (22-30) mmol/L Creatinine 1.91 H (0.66-1.25) mg/dL Glucose 225 H (74-99) mg/dL POC Glucose (mg/dL) (75-99) mg/dL Calcium 7.5 L (8.4-10.2) mg/dL Ionized Calcium Rochelle 4.3 L (4.5-5.3) mg/dL AST 130 H (17-59) U/L Alkaline Phosphatase 30 L (38-126) U/L Creatine Kinase (55-170) U/L Total Protein 3.8 L (6.3-8.2) g/dL Albumin 2.3 L (3.5-5.0) g/dL Crossmatch 10/16/20 10/16/20 10/16/20 Range/Units 07:40 07:40 07:41 WBC (3.8-10.6) k/uL RBC (4.30-5.90) m/uL Hgb (13.0-17.5) gm/dL Hct (39.0-53.0) % Plt Count (150-450) k/uL Neutrophils # (1.3-7.7) k/uL Monocytes # (0-1.0) k/uL PT (9.0-12.0) sec INR (<1.2) APTT (22.0-30.0) sec ABG pH 7.03 L* (7.35-7.45) ABG pCO2 61 H (35-45) mmHg ABG pO2 145 H (83-108) mmHg ABG HCO3 16 L (21-25) mmol/L ABG Total CO2 18 L (19-24) mmol/L ABG O2 Saturation 97.3 H (94-97) % ABG Lactic Acid 15.0 H* (0.5-1.6) mmol/L Potassium (3.5-5.1) mmol/L Carbon Dioxide (22-30) mmol/L Creatinine (0.66-1.25) mg/dL Glucose (74-99) mg/dL POC Glucose (mg/dL) (75-99) mg/dL Calcium (8.4-10.2) mg/dL Ionized Calcium Rochelle (4.5-5.3) mg/dL AST (17-59) U/L Alkaline Phosphatase (38-126) U/L Creatine Kinase 5647 H* (55-170) U/L Total Protein (6.3-8.2) g/dL Albumin (3.5-5.0) g/dL Crossmatch 10/16/20 10/16/20 10/16/20 Range/Units 08:49 10:09 10:14 WBC (3.8-10.6) k/uL RBC (4.30-5.90) m/uL Hgb (13.0-17.5) gm/dL Hct (39.0-53.0) % Plt Count (150-450) k/uL Neutrophils # (1.3-7.7) k/uL Monocytes # (0-1.0) k/uL PT (9.0-12.0) sec INR (<1.2) APTT (22.0-30.0) sec ABG pH 7.16 L* (7.35-7.45) ABG pCO2 58 H (35-45) mmHg ABG pO2 (83-108) mmHg ABG HCO3 (21-25) mmol/L ABG Total CO2 (19-24) mmol/L ABG O2 Saturation (94-97) % ABG Lactic Acid (0.5-1.6) mmol/L Potassium (3.5-5.1) mmol/L Carbon Dioxide (22-30) mmol/L Creatinine (0.66-1.25) mg/dL Glucose (74-99) mg/dL POC Glucose (mg/dL) 315 H 330 H (75-99) mg/dL Calcium (8.4-10.2) mg/dL Ionized Calcium Rochelle (4.5-5.3) mg/dL AST (17-59) U/L Alkaline Phosphatase (38-126) U/L Creatine Kinase (55-170) U/L Total Protein (6.3-8.2) g/dL Albumin (3.5-5.0) g/dL Crossmatch 10/16/20 10/16/20 10/16/20 Range/Units 11:36 11:36 11:36 WBC (3.8-10.6) k/uL RBC (4.30-5.90) m/uL Hgb (13.0-17.5) gm/dL Hct (39.0-53.0) % Plt Count (150-450) k/uL Neutrophils # (1.3-7.7) k/uL Monocytes # (0-1.0) k/uL PT (9.0-12.0) sec INR (<1.2) APTT (22.0-30.0) sec ABG pH 7.18 L* (7.35-7.45) ABG pCO2 (35-45) mmHg ABG pO2 (83-108) mmHg ABG HCO3 17 L (21-25) mmol/L ABG Total CO2 18 L (19-24) mmol/L ABG O2 Saturation (94-97) % ABG Lactic Acid 13.9 H* (0.5-1.6) mmol/L Potassium 6.2 H* (3.5-5.1) mmol/L Carbon Dioxide 16 L (22-30) mmol/L Creatinine 2.22 H (0.66-1.25) mg/dL Glucose 267 H (74-99) mg/dL POC Glucose (mg/dL) (75-99) mg/dL Calcium 7.1 L (8.4-10.2) mg/dL Ionized Calcium Rochelle 3.9 L (4.5-5.3) mg/dL AST (17-59) U/L Alkaline Phosphatase (38-126) U/L Creatine Kinase 36779 H* (55-170) U/L Total Protein (6.3-8.2) g/dL Albumin (3.5-5.0) g/dL Crossmatch 10/16/20 10/16/20 10/16/20 Range/Units 12:03 13:22 13:42 WBC 24.2 H (3.8-10.6) k/uL RBC 2.73 L (4.30-5.90) m/uL Hgb 8.6 L (13.0-17.5) gm/dL Hct 25.0 L (39.0-53.0) % Plt Count 118 L (150-450) k/uL Neutrophils # (1.3-7.7) k/uL Monocytes # (0-1.0) k/uL PT (9.0-12.0) sec INR (<1.2) APTT (22.0-30.0) sec ABG pH (7.35-7.45) ABG pCO2 (35-45) mmHg ABG pO2 (83-108) mmHg ABG HCO3 (21-25) mmol/L ABG Total CO2 (19-24) mmol/L ABG O2 Saturation (94-97) % ABG Lactic Acid (0.5-1.6) mmol/L Potassium (3.5-5.1) mmol/L Carbon Dioxide (22-30) mmol/L Creatinine (0.66-1.25) mg/dL Glucose (74-99) mg/dL POC Glucose (mg/dL) 324 H 320 H (75-99) mg/dL Calcium (8.4-10.2) mg/dL Ionized Calcium Rochelle (4.5-5.3) mg/dL AST (17-59) U/L Alkaline Phosphatase (38-126) U/L Creatine Kinase (55-170) U/L Total Protein (6.3-8.2) g/dL Albumin (3.5-5.0) g/dL Crossmatch 10/16/20 10/16/20 10/16/20 Range/Units 14:59 15:45 15:45 WBC (3.8-10.6) k/uL RBC (4.30-5.90) m/uL Hgb (13.0-17.5) gm/dL Hct (39.0-53.0) % Plt Count (150-450) k/uL Neutrophils # (1.3-7.7) k/uL Monocytes # (0-1.0) k/uL PT (9.0-12.0) sec INR (<1.2) APTT (22.0-30.0) sec ABG pH 7.23 L (7.35-7.45) ABG pCO2 (35-45) mmHg ABG pO2 155 H (83-108) mmHg ABG HCO3 15 L (21-25) mmol/L ABG Total CO2 17 L (19-24) mmol/L ABG O2 Saturation 98.3 H (94-97) % ABG Lactic Acid 16.0 H* (0.5-1.6) mmol/L Potassium 6.2 H* (3.5-5.1) mmol/L Carbon Dioxide 15 L (22-30) mmol/L Creatinine 2.77 H (0.66-1.25) mg/dL Glucose 226 H (74-99) mg/dL POC Glucose (mg/dL) (75-99) mg/dL Calcium 6.6 L (8.4-10.2) mg/dL Ionized Calcium Rochelle (4.5-5.3) mg/dL AST (17-59) U/L Alkaline Phosphatase (38-126) U/L Creatine Kinase (55-170) U/L Total Protein (6.3-8.2) g/dL Albumin (3.5-5.0) g/dL Crossmatch 10/16/20 Range/Units 16:49 WBC (3.8-10.6) k/uL RBC (4.30-5.90) m/uL Hgb (13.0-17.5) gm/dL Hct (39.0-53.0) % Plt Count (150-450) k/uL Neutrophils # (1.3-7.7) k/uL Monocytes # (0-1.0) k/uL PT (9.0-12.0) sec INR (<1.2) APTT (22.0-30.0) sec ABG pH (7.35-7.45) ABG pCO2 (35-45) mmHg ABG pO2 (83-108) mmHg ABG HCO3 (21-25) mmol/L ABG Total CO2 (19-24) mmol/L ABG O2 Saturation (94-97) % ABG Lactic Acid (0.5-1.6) mmol/L Potassium (3.5-5.1) mmol/L Carbon Dioxide (22-30) mmol/L Creatinine (0.66-1.25) mg/dL Glucose (74-99) mg/dL POC Glucose (mg/dL) 231 H (75-99) mg/dL Calcium (8.4-10.2) mg/dL Ionized Calcium Rochelle (4.5-5.3) mg/dL AST (17-59) U/L Alkaline Phosphatase (38-126) U/L Creatine Kinase (55-170) U/L Total Protein (6.3-8.2) g/dL Albumin (3.5-5.0) g/dL Crossmatch
[2020-10-16 17:33] LABS: Glucose,Whole Blood 210 mg/dL (75-99)
--- NOTE | 2020-10-16 17:45 | P.PN ---
Progress Note - Text Progress Note Date: 10/16/20 updated over the phone at approx 1630 regarding current prognosis. She is aware that he has multiple organs failing and that he may not survive this event. We discussed that he is requiring significant blood pressure support, that he has not urine output and that he has not made any progress toward recover today. She then spoke with Dr. Ware over the phone. Dr. Tran updated on potassium level- additional IV insulin Dr. Leo updated via [employer] serve
[2020-10-16] MEDS ORDERED: CISATRACURIUM 2 MG/ML 5 ML VIAL IV ONE (17:57)
[2020-10-16] MEDS ORDERED: SODIUM CHLORIDE 0.9% 1,000 ML IV ONE (18:47)
[2020-10-16] MEDS ORDERED: HEPARIN SODIUM 1,000 UN/ML (10ML VL) IRRIGATION ONE (18:52)
--- NOTE | 2020-10-16 19:35 | CONS ---
CONSULTATION REASON FOR CONSULT: Renal failure. HISTORY OF PRESENT ILLNESS: The patient is a 65-year-old male who was admitted to the hospital yesterday with complaints of bilateral leg weakness and numbness. The patient recently had stenting of infrarenal aortic aneurysm. He was seen by vascular surgery and had CT angiography done yesterday which showed possible clot within the distal abdominal aorta and occlusion of the distal aorta. The patient was taken to the OR. He had a prolonged surgery for about 12 hours overnight for acute bilateral critical limb ischemia and occlusion of the aortoiliac and right femoral artery. Patient had balloon angioplasty of aortic graft, open thrombectomy of the aortic graft, bilateral femoral artery cutdown. The patient had compromised renal circulation during the surgery. He also received more dye during the procedure with subsequent angiograms. Patient is hypotensive, currently maintained on Levophed which was recently increased to about 22 mcg. His serum creatinine was 0.95 mg/dL yesterday. It is up to 1.9. Currently patient has no urine output. His potassium was elevated at 6.3. He was also mildly acidotic with CO2 of 17. Hemoglobin is 8 g/dL, down from 12.9 on initial admission. CK was elevated at 5647. PAST MEDICAL HISTORY: Hypertension, peripheral vascular disease, type 2 diabetes, hyperlipidemia. PAST SURGICAL HISTORY: Cardiac catheterization, hernia repair, right elbow replacement, colonoscopy, aortogram. SOCIAL HISTORY: Positive for smoking. No history of drug abuse or alcohol abuse. MEDICATIONS PRIOR TO ADMISSION: Included aspirin, Lipitor, Glucotrol, Plavix, and metformin. ALLERGIES: NONE. REVIEW OF SYSTEMS: As per HPI. EXAMINATION: Currently patient is sedated. He is maintained on the vent. FiO2 is at 80%. He is maintained on pressors. Blood pressure was this morning 98/55, heart rate of 105 per minute, patient is afebrile. Examination of the heart S1, S2. Examination of the lungs, bilateral breath sounds are heard. Abdomen is soft. Incision is intact and dressed currently. Examination lower extremities shows cool peripheries. Pulses are present. No significant edema noted. MAGISTRATE ASSISTANT exam cannot be assessed. LAB: Show sodium of 139, potassium 6.3, chloride 104, CO2 17, BUN 13, creatinine 1.9. CK was 5647. ASSESSMENT: 1. Kidney injury, multifactorial secondary to ischemic acute tubular necrosis as well as hypotension. The patient has received significant amount of IV contrast as well during his procedure and this will further add to his acute kidney injury over the next few days. Currently patient is oliguric with very poor urine output. We will continue aggressive hydration and if there is no improvement in urine output patient will likely need renal replacement therapy. 2. Mild rhabdomyolysis. 3. Acute aortoiliac occlusion status post angioplasty and stenting initially taken back yesterday to OR for surgical intervention, thrombectomy, revascularization with compromised renal circulation temporarily during the procedure. 4. Acute severe metabolic acidosis, likely lactic acidosis. 5. Anemia perioperatively, status post 4 units packed RBC transfusion. 6. Hypotension secondary to shock. 7. Acute hypoxic and hypercapnic respiratory failure. PLAN: Continue IV fluids for now. Treat hyperkalemia with IV medications, mostly insulin as blood sugar is elevated. We will try to keep the blood sugar below 180 and avoid any other nephrotoxic medications. Continue pressor support. The patient will likely need renal replacement therapy in the next 24-48 hours since he is severely oliguric, almost anuric. Thank you for this consultation. Will continue to follow the patient with you during his hospitalization. MMODL / IJN: [id number] /
--- NOTE | 2020-10-16 19:39 | P.OP ---
Date of Procedure: 10/16/20 Preoperative Diagnosis: #1: Acute renal failure with anticipated need of hemodialysis. #2: Suspected compartment syndrome left calf. Postoperative Diagnosis: Same Procedure(s) Performed: #1: Ultrasound and fluoroscopically guided placement of a non-tunneled hemodialysis catheter placed via the right internal jugular vein approach. #2: . 4 compartment fasciotomy right calf Implants: None. Anesthesia: GETA Surgeon: Raimundo Ware Estimated Blood Loss (ml): 100 Urine output (ml): 0 Pathology: none sent Condition: critical Disposition: ICU Indications for Procedure: Patient is a 65-year-old male who underwent extended vascular surgical procedure who began to develop swelling in the left calf area with concern for compartment syndrome. Additionally the patient is in acute renal failure and it is anticipated the patient will require hemodialysis in the very near future. Description of Procedure: Patient is brought the operating room placed in the supine position. He remained intubated from the ICU. The right lateral neck, and 2 chest wall and supraclavicular areas were sterilely prepped and draped in usual manner. Utilizing ultrasound the right internal jugular vein was identified. This was noted to be free of thrombus and was normally compressible. With ultrasound guidance a multipurpose needle was utilized to cannulate the vein. Once cannulated Softip guidewire was advanced into the superior vena cava. Its position was confirmed with fluoroscopy. The needle was withdrawn. Vascular dilators were advanced and withdrawn from over the guidewire. A non-tunneled dialysis catheter was advanced over the guidewire. Guidewire was withdrawn. All ports easily aspirated blood and were flushed with 5000 units of heparin per cc times volume sufficient to fill each lumen. Then Placed on Each Lumen and the Catheter Secured with Silk Suture to the Skin. Appropriate Dressings Were Applied. Attention was then turned to the left lower extremity which had been previously prepped and draped. A skin incision was made medially from just above the malleolus to the upper calf area. The fascia was incised superiorly as well as inferiorly allowing access to the deep and superficial compartments. Some muscle bulging was noted. Subsequently an incision along the lateral aspect of the leg at the calf level was made in the fascia was incised releasing the anterior compartment. In all compartments the muscle appeared healthy. Wounds were then covered with saline moistened gauze followed by placement of ABD bandage and an Jelani wrap. Patient tolerated the procedure well and was returned to the ICU in unchanged/critical condition.
[2020-10-16 19:43] LABS: ABG Base Excess -17.9 mmol/L; ABG HCO3 12 mmol/L (21-25); ABG Oxygen Saturation 93.5 % (94-97); ABG PCO2 40 mmHg (35-45); ABG PO2 96 mmHg (83-108); ABG TCO2 13 mmol/L (19-24); Allen Test Performed? Yes
[2020-10-16 19:49] LABS: ABG PH 7.09 (7.35-7.45)
[2020-10-16] MEDS: SODIUM CHLORIDE 0.9% 50 ML with VASOPRESSIN 20 UNIT IVPB SCH ×2 (19:54)
[2020-10-16 19:56] LABS: HCT 22.6 % (39.0-53.0); HGB 7.4 gm/dL (13.0-17.5); MCH 30.9 pg (25.0-35.0); MCHC 32.8 g/dL (31.0-37.0); MCV 94.3 fL (80.0-100.0); Mean Platelet Volume 9.4; Platelet Count 118 k/uL (150-450); RBC 2.39 m/uL (4.30-5.90); RDW 15.1 % (11.5-15.5); WBC 27.5 k/uL (3.8-10.6)
[2020-10-16 20:03] LABS: Ionized Calcium 3.6 mg/dL (4.5-5.3)
[2020-10-16 20:10] LABS: Calcium 6.7 mg/dL (8.4-10.2)
[2020-10-16 20:13] LABS: Potassium 6.1 mmol/L (3.5-5.1)
[2020-10-16 20:29] LABS: Prothrombin Time 19.9 sec (9.0-12.0)
[2020-10-16 20:36] LABS: Partial Thromboplastin Time 126.9 sec (22.0-30.0)
[2020-10-16] MEDS ORDERED: DEXTROSE 50% SYRINGE 50 ML IVP ONE (21:24)
[2020-10-16] MEDS ORDERED: FUROSEMIDE 10 MG/ML 10 ML VIAL IV STA (21:25)
[2020-10-17] LABS: Glucose,Whole Blood 173 mg/dL (75-99)
[2020-10-17 00:18] LABS: MCH 32.4 pg (25.0-35.0); MCHC 34.4 g/dL (31.0-37.0); MCV 94.2 fL (80.0-100.0); Mean Platelet Volume 9.8; Platelet Count 111 k/uL (150-450); RBC 2.06 m/uL (4.30-5.90); RDW 14.8 % (11.5-15.5)
[2020-10-17 00:57] LABS: Calcium 6.5 mg/dL (8.4-10.2); HCT 19.4 % (39.0-53.0); HGB 6.7 gm/dL (13.0-17.5)
[2020-10-17 01:18] LABS: Potassium 6.2 mmol/L (3.5-5.1)
[2020-10-17] MEDS ORDERED: SODIUM BICARB 8.4% 50 ML SYR (1 MEQ/ML) IV STA (02:00)
[2020-10-17] MEDS ORDERED: DEXTROSE 50% SYRINGE 50 ML IVP ONE (02:01)
[2020-10-17] MEDS ORDERED: INSULIN REGULAR 100 UNIT/ML VIAL IV ONE (02:01)
[2020-10-17] MEDS: INSULIN ASPART (NovoLOG) 100 UNIT/ML VIAL SQ SCH (02:18)
[2020-10-17 02:43] VITALS: RESP 32
[2020-10-17] MEDS: SODIUM CHLORIDE 0.9% 50 ML with VASOPRESSIN 20 UNIT IVPB SCH ×2 (03:04)
[2020-10-17 03:43] LABS: Hepatitis B Surface AB- Quant <3.5 mIU/mL; Hepatitis B Surface Antibody Non-Reactive (Non-Reactive); Hepatitis B Surface Antigen Non-Reactive (Non-Reactive)
[2020-10-17] MEDS: NOREPINEPHRINE 32 MG in SODIUM CHLORIDE 0.9% 218 ML IV SCH (04:12)
[2020-10-17 04:26] VITALS: TEMP 96.4
--- NOTE | 2020-10-17 04:27 | XR ---
EXAM: XR Chest, 1 View CLINICAL HISTORY: ITS.REASON XR Reason: HD port TECHNIQUE: Frontal view of the chest. COMPARISON: Yesterday FINDINGS: Lungs: No substantial change in pulmonary findings. Pleural space: Unremarkable. No pneumothorax. Mediastinum: Unremarkable. Bones/joints: No acute findings. Tubes, lines and devices: Tip of right jugular central venous catheter projects over the region of superior vena cava, about 1.5 cm below the level of the haylee. Endotracheal tube, enteric tube, left jugular central venous catheter are again noted. IMPRESSION: Tip of right jugular central venous catheter projects over the region of superior vena cava, about 1.5 cm below the level of the haylee. No pneumothorax. No substantial change otherwise
[2020-10-17 04:48] LABS: ABG HCO3 15 mmol/L (21-25); ABG Oxygen Saturation 95.2 % (94-97); ABG PCO2 42 mmHg (35-45); ABG PO2 99 mmHg (83-108); ABG TCO2 16 mmol/L (19-24); Allen Test Performed? Yes
[2020-10-17 04:51] LABS: ABG PH 7.15 (7.35-7.45)
[2020-10-17 05:06] VITALS: BP 98/40; PULSE 99
[2020-10-17] MEDS ORDERED: SODIUM BICARB 8.4% 50 ML SYR (1 MEQ/ML) ONE (05:17)
[2020-10-17] MEDS ORDERED: CALCIUM GLUCONATE 1 GM in SODIUM CHLORIDE 0.9% 100 ML IVPB ONE (05:44)
--- NOTE | 2020-10-17 06:09 | P.EN ---
Code Blue Note Activated at 5:11 AM. Arrived on the scene shortly after. Patient had lost his pulse and was immediately started on high quality CPR. He was given epinephrine IV push x 7, sodium bicarbonate IVP x 3, and calcium gluconate x 1. The case was discussed with the director digital catalogue and vascular surgery director of laboratory operations by the RN. The patient had a pulse for a brief period of time but despite the efforts, reverted to PEA. The case was discussed by the script writer with the patient's Yelitza Pike via phone while they were en-route to the hospital. Discussed the grave prognosis, at which time the advised to halt CPR. The patient was pronounced at 5:50 am. Please refer to the code sheet for further details.
--- NOTE | 2020-10-17 09:20 | P.DS ---
Providers Date of admission: 10/15/20 14:07 Expected date of discharge: 10/17/20 Attending physician: Leatha Garcia DO Consults: 10/15/20 14:08 Consult Physician Urgent Consulting Provider: Ashish Meneses Consult Reason/Comments: Leg weakness and paresthesias, evaluate for stent thrombosis Do you want consulting provider notified?: Yes 10/16/20 07:46 Consult Physician Stat Consulting Provider: Rosalia Leo Consult Reason/Comments: ICU management Do you want consulting provider notified?: Already Contacted 10/16/20 07:56 Consult Physician Routine Consulting Provider: Leatha Garcia Consult Reason/Comments: med mgmnt Do you want consulting provider notified?: Yes 10/16/20 08:54 Consult Physician Routine Consulting Provider: Nova Tran Consult Reason/Comments: anuric renal failure, Hyperkalemia Do you want consulting provider notified?: Yes Primary care physician: Cricket Orta [facility] Course: Patient this morning prior to my evaluation. Patient had a cardiac arrest this morning and eventually after resuscitation efforts stopped as requested by his . For further details about this hospitalization please refer to the electronic chart Plan - Discharge Summary Discharge Rx Participant: No New Discharge Prescriptions: No Action glipiZIDE [Glucotrol] 10 mg PO AC-BID Atorvastatin [Lipitor] 10 mg PO HS Aspirin EC [Ecotrin Low Dose] 81 mg PO DAILY Clopidogrel [Plavix] 75 mg PO DAILY #90 tab metFORMIN HCL 1,000 mg PO BID Discharge Medication List Aspirin EC [Ecotrin Low Dose] 81 mg PO DAILY 01/09/19 [History] Atorvastatin [Lipitor] 10 mg PO HS 01/09/19 [History] glipiZIDE [Glucotrol] 10 mg PO AC-BID 01/09/19 [History] Clopidogrel [Plavix] 75 mg PO DAILY #90 tab 10/15/20 [Rx] metFORMIN HCL 1,000 mg PO BID 10/15/20 [History] Follow up Appointment(s)/Referral(s): Cricket Orta [Primary Care Provider] - 1-2 days
--- NOTE | 2020-10-17 10:30 | FL ---
EXAMINATION TYPE: FL guided central line placemt HISTORY: Fluoroscopy time Impression: 1. Fluoroscopy support provided to the referring physician. 10 seconds provided of fluoroscopy.
== END 2020-10-17 10:36 | disposition expired | DRG 270 ==
LOC: EC 12:15 → 3SCARD 14:07 → 2SICU 23:41
PROVIDERS: ADMIT Internal Medicine; ATTEND Internal Medicine
PROC: 3E033XZ Introduction of Vasopressor into Peripheral Vein, Percutaneous Approach (ICD-10-PCS; 2020-10-16)
PROC: 30243K1 Transfusion of Nonautologous Frozen Plasma into Central Vein, Percutaneous Approach (ICD-10-PCS; 2020-10-16)
PROC: 30243N1 Transfusion of Nonautologous Red Blood Cells into Central Vein, Percutaneous Approach (ICD-10-PCS; 2020-10-16)
PROC: 30243R1 Transfusion of Nonautologous Platelets into Central Vein, Percutaneous Approach (ICD-10-PCS; 2020-10-16)
PROC: B440ZZ3 Ultrasonography of Abdominal Aorta, Intravascular (ICD-10-PCS; principal; 2020-10-16 17:05)
PROC: 047J3ZZ Dilation of Left External Iliac Artery, Percutaneous Approach (ICD-10-PCS; principal; 2020-10-16 17:05)
PROC: B44LZZ3 Ultrasonography of Femoral Artery, Intravascular (ICD-10-PCS; principal; 2020-10-16 17:05)
PROC: 04100JK Bypass Abdominal Aorta to Bilateral Femoral Arteries with Synthetic Substitute, Open Approach (ICD-10-PCS; principal; 2020-10-16 17:05)
PROC: 04703ZZ Dilation of Abdominal Aorta, Percutaneous Approach (ICD-10-PCS; principal; 2020-10-16 17:05)
PROC: 02P Heart and Great Vessels, Removal (ICD-10-PCS; principal; 2020-10-16 17:05)
PROC: 02P Heart and Great Vessels, Removal (ICD-10-PCS; principal; 2020-10-16 17:05)
PROC: 0WQF0ZZ Repair Abdominal Wall, Open Approach (ICD-10-PCS; principal; 2020-10-16 17:05)
PROC: 0WPF0JZ Removal of Synthetic Substitute from Abdominal Wall, Open Approach (ICD-10-PCS; principal; 2020-10-16 17:05)
PROC: 04CK0ZZ Extirpation of Matter from Right Femoral Artery, Open Approach (ICD-10-PCS; principal; 2020-10-16 17:05)
PROC: B44BZZ3 Ultrasonography of Other Intra-Abdominal Arteries, Intravascular (ICD-10-PCS; principal; 2020-10-16 17:05)
PROC: 04CL0ZZ Extirpation of Matter from Left Femoral Artery, Open Approach (ICD-10-PCS; principal; 2020-10-16 17:05)
PROC: 047H3ZZ Dilation of Right External Iliac Artery, Percutaneous Approach (ICD-10-PCS; principal; 2020-10-16 17:05)
PROC: 05HM33Z Insertion of Infusion Device into Right Internal Jugular Vein, Percutaneous Approach (ICD-10-PCS; 2020-10-16 17:05)
PROC: 0KNT0ZZ Release Left Lower Leg Muscle, Open Approach (ICD-10-PCS; 2020-10-16 17:05)
PROC: 5A1D70Z Performance of Urinary Filtration, Intermittent, Less than 6 Hours Per Day (ICD-10-PCS; 2020-10-17)
PROC: 5A12012 Performance of Cardiac Output, Single, Manual (ICD-10-PCS; 2020-10-17)
DX: T82.868A Thrombosis due to vascular prosthetic devices, implants and grafts, initial encounter (principal); N17.0 Acute kidney failure with tubular necrosis; I71.02 Dissection of abdominal aorta; J96.02 Acute respiratory failure with hypercapnia; J96.01 Acute respiratory failure with hypoxia; I74.5 Embolism and thrombosis of iliac artery; I74.3 Embolism and thrombosis of arteries of the lower extremities; M79.A22 Nontraumatic compartment syndrome of left lower extremity; E87.2 Acidosis; M62.82 Rhabdomyolysis; D62 Acute posthemorrhagic anemia; T82.898A Other specified complication of vascular prosthetic devices, implants and grafts, initial encounter; R57.1 Hypovolemic shock; E83.51 Hypocalcemia; I70.223 Atherosclerosis of native arteries of extremities with rest pain, bilateral legs; E11.51 Type 2 diabetes mellitus with diabetic peripheral angiopathy without gangrene; E11.65 Type 2 diabetes mellitus with hyperglycemia; I46.8 Cardiac arrest due to other underlying condition; E66.01 Morbid (severe) obesity due to excess calories; Z20.822 Contact with and (suspected) exposure to COVID-19; E87.5 Hyperkalemia; Z68.35 Body mass index [BMI] 35.0-35.9, adult; I10 Essential (primary) hypertension; E78.5 Hyperlipidemia, unspecified; F17.210 Nicotine dependence, cigarettes, uncomplicated; Z71.6 Tobacco abuse counseling; Z79.82 Long term (current) use of aspirin; Z79.84 Long term (current) use of oral hypoglycemic drugs; Z79.02 Long term (current) use of antithrombotics/antiplatelets; Z79.899 Other long term (current) drug therapy; Z95.5 Presence of coronary angioplasty implant and graft; Z87.19 Personal history of other diseases of the digestive system; Z87.39 Personal history of other diseases of the musculoskeletal system and connective tissue; Z96.621 Presence of right artificial elbow joint; Z98.890 Other specified postprocedural states; Y83.2 Surgical operation with anastomosis, bypass or graft as the cause of abnormal reaction of the patient, or of later complication, without mention of misadventure at the time of the procedure; Z80.9 Family history of malignant neoplasm, unspecified
CPT/HCPCS: 36415; 36430; 71045; 75635; 76770; 77001; 80048; 80053; 82330; 82550; 82805; 83605; 83735; 85025; 85027; 85610; 85730; 86706; 86850; 86900; 86901; 86920; 87070; 87205; 87340; 87635; 90935; 93306; 94002; 94003; 99285